=== PATIENT | male | born 1970 | race Caucasian/White ===

== ENCOUNTER → 2016-08-24 10:31 | Outpatient (CLI) | payer BC ==
[2016-08-24 12:05] LABS: BASOPHILS 0.3 % (0.0-2.0); EOSINOPHILS 0.7 % (0-7); HEMATOCRIT 50.7 % (42.0-54.0); HEMOGLOBIN 16.9 g/dL (13.5-17.5); IMMATURE GRANULOCYTES 0.6 % (0-5); LYMPHOCYTES 17.4 % (15-50); MCH 35.4 pg (26.0-34.0); MCHC 33.3 g/dL (31.0-37.0); MCV 106.1 fL (80.0-100.0); MEAN PLATELET VOLUME 10.5 fL (7.4-10.4); MONOCYTES 14.5 % (2-11); NEUTROPHILS 66.5 % (40-80); PLATELET COUNT 219 10x3/uL (130-400); RBC 4.78 10x6/uL (4.20-6.10); RDW 12.5 % (11.5-14.5); WBC 6.7 10x3/uL (4.8-10.8)
[2016-08-24 12:31] LABS: COLOR DK YELLOW (YELLOW)
[2016-08-24 12:32] LABS: ALBUMIN 4.4 g/dL (3.4-5.0); ALKALINE PHOSPHATASE 95 U/L (46-116); ALT (SGPT) 71 U/L (10-68); AMYLASE - SERUM 60 U/L (25-115); APPEARANCE CLEAR (CLEAR); BILIRUBIN NEGATIVE (NEGATIVE); CALC OSMOLALITY 271 mosm/kg (275-300); CALCIUM 9.4 mg/dL (8.5-10.1); CARBON DIOXIDE 30.8 mmol/L (21.0-32.0); CHLORIDE - SERUM 100 mmol/L (98-107); CREATININE - SERUM 1.1 mg/dL (0.6-1.3); GLUCOSE 86 mg/dL (74-106); GLUCOSE NEGATIVE (NEGATIVE); KETONE NEGATIVE (NEGATIVE); LEUKOCYTE ESTERASE NEGATIVE (NEGATIVE); LIPASE 469 U/L (73-393); NITRITE NEGATIVE (NEGATIVE); POTASSIUM - SERUM 5.7 mmol/L (3.5-5.1); PROTEIN NEGATIVE (NEGATIVE); PROTEIN - SERUM 7.7 g/dL (6.4-8.2); SODIUM 137 mmol/L (136-145); SPECIFIC GRAVITY 1.005 (1.005-1.020); UREA NITROGEN 9 mg/dL (7-18); UROBILINOGEN NORMAL (NORMAL); eGFR NON AFRICAN AMERICAN 76 mL/min (90-120)
== END | disposition home or self-care (01) ==
LOC: D.US 10:30
PROVIDERS: Surgery
DX: D75.1 Secondary polycythemia (principal); R63.4 Abnormal weight loss; R10.9 Unspecified abdominal pain; R11.2 Nausea with vomiting, unspecified

== ENCOUNTER 2016-09-01 05:30 | Day surgery (SDC) | payer BC ==
[2016-08-31 15:14] LABS: BASOPHILS 0.3 % (0.0-2.0); EOSINOPHILS 1.8 % (0-7); HEMATOCRIT 42.7 % (42.0-54.0); HEMOGLOBIN 14.6 g/dL (13.5-17.5); IMMATURE GRANULOCYTES 0.8 % (0-5); LYMPHOCYTES 26.7 % (15-50); MCH 35.6 pg (26.0-34.0); MCHC 34.2 g/dL (31.0-37.0); MCV 104.1 fL (80.0-100.0); MEAN PLATELET VOLUME 10.2 fL (7.4-10.4); MONOCYTES 13.5 % (2-11); NEUTROPHILS 56.9 % (40-80); PLATELET COUNT 219 10x3/uL (130-400); RDW 12.2 % (11.5-14.5); WBC 6.2 10x3/uL (4.8-10.8)
[2016-08-31 15:25] LABS: CALC OSMOLALITY 275 mosm/kg (275-300); CALCIUM 8.9 mg/dL (8.5-10.1); CARBON DIOXIDE 25.3 mmol/L (21.0-32.0); CHLORIDE - SERUM 104 mmol/L (98-107); CREATININE - SERUM 0.8 mg/dL (0.6-1.3); GLUCOSE 81 mg/dL (74-106); INR 0.94 (0.85-1.17); POTASSIUM - SERUM 4.6 mmol/L (3.5-5.1); PROTIME 12.4 SECONDS (11.6-15.0); SODIUM 140 mmol/L (136-145); UREA NITROGEN 7 mg/dL (7-18); eGFR NON AFRICAN AMERICAN > 90 mL/min (90-120)
[~2016-09-01] VITALS: Ht 188 cm; Wt 87.1 kg
[~2016-09-01 05:30] MED LIST: ACCUPRIL40 MG PO; COUMADIN5 MG PO; DEXILANT60 MG PO; LIPITOR40 MG PO; METOPROLOL TART25 MG PO; PERCOCET 10/3251 TA1 PO; PLAVIX75 MG PO; PROTONIX40 MG PO; ZANAFLEX4 MG PO
[2016-09-01] MEDS ORDERED: ZOLOFT100 MG PO (06:33)
[2016-09-01] MEDS ORDERED: CATAPRES0.1 MG PO (06:34)
[2016-09-01 06:36] VITALS: BP 127/77; Ht 188 cm; Wt 87.1 kg
[2016-09-01] MEDS ORDERED: DILAUDID2 MG PO (10:37)
--- NOTE | 2016-09-03 07:35 | OP ---
PATIENT NAME: FAISAL KILLIAN MEDICAL RECORD: [id number] :68 [facility] DATE: SURGEON: SWAPNA EMERY MD DATE OF OPERATION: 09/01/2016 PREOPERATIVE DIAGNOSES: Biliary dyskinesia, manifested by right upper quadrant pain and minimal elevation in transaminase liver functions and minimal hyperlipasemia and sludge in gallbladder on ultrasound, but with normal ejection fraction during PIPIDA scanning with Ensure stimulation. ADDITIONAL DIAGNOSIS: Gastric polyposis. OPERATION PERFORMED: Laparoscopic cholecystectomy with intraoperative cholangiogram and EGD with multiple biopsies of gastric mucosa and duodenal mucosa, including a CLOtest. SURGEON: Swapna Emery MD. ANESTHESIA: General endotracheal per CNC WOOD LATHE OPERATOR. The patient was self referred. The patient's local Press Operator Carbon Blocks Oncologist is Dr. Nesbitt at the [facility] here in [place] and his primary care physician is Dr. Powell in [place], [place]. OPERATIVE FINDINGS: Normal appearing gallbladder and liver with a normal cholangiogram and multiple gastric small sessile polyps. No evidence of esophagitis or hiatus hernia with a normal appearing lower esophageal sphincter complex and no significant gastritis, duodenitis. No ulcers, etc. ANESTHESIA: General endotracheal per CNC WOOD LATHE OPERATOR. PREOPERATIVE NOTE: Mr. Killian is a 46-year-old white male patient from [place] previously at [place], [place] in [place], [place]. He has a long history of abdominal pain and has suffered about a 25-pound weight loss over the past few months. His pain is often at the right upper quadrant postprandial. His evaluation included a liver function profile, which demonstrated mild elevations in SGOT and SGGT with a normal alkaline phosphatase. He did have a mild elevation in serum lipase also. He had a PIPIDA scan, which demonstrated normal gallbladder ejection fraction, but reproduction of pain with ingestion of Ensure. The patient's gallbladder ultrasound demonstrated some sludge in the gallbladder, but otherwise normal and an abdominal CT scan was done with IV contrast demonstrated no abnormality of the pancreas, liver, or other intraabdominal organs. The patient was advised that the reproduction of pain during the PIPIDA scan is soft indication or confirmation of biliary dyskinesia that nothing else having turned up. He today is going to have a laparoscopic cholecystectomy and also an EGD. He has a history of use of a proton pump inhibitor. MEDICATIONS: Presently is on Dexilant and Protonix and a b.i.d. dosage of regime with unclear indications. The patient does have a history of severe hypertension. I believe he has had a TIA as well and has fairly severe polycythemia vera. He is on Coumadin and Plavix medications because of that. He has discontinued his Coumadin and Plavix for approximately 5 days prior to his operation. OPERATIVE REPORT [id number] FAISAL KILLIAN DESCRIPTION OF PROCEDURE: With the patient under general endotracheal anesthesia in supine position, he was prepped and draped in a sterile manner. The abdomen was entered through a short midline subumbilical incision. A Dov port was placed and pneumoperitoneum established with carbon dioxide. A four additional ports were placed in the usual positions using 5-mm ports, but one 10-11 at the subxiphoid spot. The abdomen was examined and the operation was conducted with a 10 mm diameter 30 degree angled laparoscope. A general assessment upon entering the abdomen with the scope was at all of the visible structures were normal in appearance. The gallbladder was retracted cephalad and again noted the gallbladder and liver and hepatoduodenal ligament and duodenum were normal in appearance. There was no evidence of inflammatory process in this area. Blunt dissection exposed the junction of the common bile duct and the neck of the gallbladder and a very prominent right hepatic artery with a short cystic artery arising from that. The cystic duct was closed near the neck of the gallbladder and then incised and a cholangiocatheter inserted through the anterior abdominal wall, was flushed with saline and then inserted into the cystic duct and held in place with a clip. Real time digital C-arm fluoroscopy was used along with digital subtraction technique to perform the intraoperative cholangiogram. This study was normal with normal filling of the common bile duct and common hepatic duct and intrahepatic right and left hepatic ducts and there was free flow of contrast into the duodenum without evidence of filling defects or obstruction. The cholangiogram catheter was removed and the cystic duct multiply hemoclipped and then divided. The cystic artery was carefully dissected and multiply hemoclipped and divided protecting the hepatic artery. The gallbladder was then detached from the liver with monopolar electrocautery dissection and placed in a sterile plastic retrieval bag. The gallbladder was perforated by one of the graspers, but there is minimal bile spillage and this was all irrigated and suctioned away. After reducing the intraperitoneal pressure and observing for any bleeding, the gallbladder was removed from the peritoneal cavity through the subumbilical incision and pneumoperitoneum was evacuated. The remaining ports were removed and the wounds were closed with interrupted [id number] 0 Vicryl for fascia and interrupted inverted 3-0 Vicryl for skin and subcutaneous tissues. The incisions were further sealed and closed with glue and dressed with Maxorb Ag, Tegaderm and Cavilon skin prep. Prior to closure, I also instilled 30 mL of 0.25% Marcaine with epinephrine into the subphrenic and subhepatic spaces. The patient was continued under anesthesia and the Olympus gastroscope was inserted through the mouth and advanced to the pharynx and esophagus into the stomach. There was no evidence of abnormality of the esophagus. No evidence of esophagitis, certainly no ulceration or stricture, no inflammation, no candidiasis, etc. The GE junction was located at about 42 to 43 cm from the incisors and the lower esophageal sphincter seems to be intact without any abnormal laxity whatsoever. The prominent rugal folds and multiple nodules consistent with a gastric fundic polyps. There was no evident gastritis. No ulcerations or other abnormalities. The scope was passed through the patulous pylorus into the first and then the second portions of the duodenum and slowly withdrawn. Biopsies of the duodenal mucosa were obtained in the first portion of the duodenum and then in the stomach, multiple gastric mucosal biopsies were obtained for CLOtest as well as histopathology. The insufflated air was suctioned away and the scope withdrawn. The patient was then awakened and in stable condition taken to the recovery room. Blood loss throughout the procedure was trivial and was unreplaced and all sponges, instruments, and needles were accounted for. No drain was used and the surgical specimens consisted of the gallbladder and its remaining contents and the duodenal mucosal OPERATIVE REPORT [id number] FAISAL KILLIAN and gastric mucosal endoscopic biopsies. PLAN: For the patient to go home today and continue his home medications. We will resume his usual daily dose of Coumadin today, but is not to resume his Plavix until after he sees me in my office. He has an appointment to return to see me in about 2 weeks. He is to call or comes to see me sooner if there is any problem. He plans to be I think out of town in [place] in the interim, otherwise I will be seeing him back sooner. He is given a prescription for Dilaudid 2 mg #10 and can take 1 p.o. q.4 hours p.r.n. pain, but I advised that if possible he takes only Tylenol. He will continue to avoid aspirin and nonsteroidal anti-inflammatory medications and alcohol. Blood loss during the operation was insignificant and unreplaced. No drain was used. All sponges, instruments and needles were accounted for and the specimens were noted. At this point, I see no clear indication for the intensive PPI therapy and when I see him back in the office, we will discuss trying to wean him from these medications, perhaps towards H2 receptor blockers and oral antacids if still needed. Hopefully, his biliary dyskinesia has been responsible for a great deal of his discomfort and that will have been relieved by today's procedure. TRANSINT:[id number] Voice Confirmation ID: [id number] DOCUMENT ID: [id number] SWAPNA EMERY MD at 0735 CC: PRIMO NESBITT MD [id number] DICTATION DATE: 09/01/16 1107 FREELANCE ART DIRECTOR: 09/01/16 [address] [facility] 09/01/16 [facility] [address] [place] [address]
== END 2016-09-01 11:30 | disposition home or self-care (01) ==
LOC: D.OPS 05:30 → D.PAN 07:30 → D.OPS 11:30
PROVIDERS: Surgery
DX: R10.11 Right upper quadrant pain (principal); K21.9 Gastro-esophageal reflux disease without esophagitis; I10 Essential (primary) hypertension; Z87.891 Personal history of nicotine dependence; M19.90 Unspecified osteoarthritis, unspecified site; K82.8 Other specified diseases of gallbladder

== ENCOUNTER 2017-07-26 20:41 | Emergency (ER) | payer BC ==
[~2017-07-26 20:41] MED LIST changes: +CATAPRES0.1 MG PO; +DILAUDID2 MG PO; +ZOLOFT100 MG PO
== END 2017-07-26 21:50 | disposition home or self-care (01) ==
LOC: D.ER 20:41
DX: S80.12XA Contusion of left lower leg, initial encounter (principal); W20.8XXA Other cause of strike by thrown, projected or falling object, initial encounter; Y93.89 Activity, other specified; Y92.89 Other specified places as the place of occurrence of the external cause; S80.812A Abrasion, left lower leg, initial encounter; I10 Essential (primary) hypertension; M25.562 Pain in left knee

== ENCOUNTER → 2017-10-17 14:56 | Outpatient (CLI) | payer BC ==
[2016-09-01 06:36] VITALS: BMI 24.7
== END | disposition home or self-care (01) ==
LOC: D.MRI 14:00
DX: M79.671 Pain in right foot (principal)

== ENCOUNTER 2017-11-12 11:35 | Day surgery (SDC) | payer BC ==
[~2017-11-12] VITALS: Ht 188 cm; Wt 86.2 kg
--- NOTE | ~2017-11-12 | OP ---
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 Peroneal nerve palsy of the right lower extremity with footdrop. 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 PROCEDURE: Peroneal nerve release, right lower extremity. SURGEON: Swapna Branham MD ANESTHESIA: General. INTRAOPERATIVE COMPLICATIONS: None. SUMMARY OF PATHOLOGIC FINDINGS: The patient had very tight fibrous bands just anterior to the fibular head where the peroneal nerve penetrated into the foot dorsiflexion mechanism. OPERATIVE SUMMARY IN DETAIL: After obtaining the appropriate preoperative orthopaedic surgery consent as well as anesthetic consultation, evaluation, and clearance, the patient was brought to the operating room and placed on the operating table in the supine position. After adequate general laryngeal mask airway was administered, the patient was placed in left lateral decubitus position. All pressure points were well padded to include down leg peroneal pad as well as axillary roll. The patient was held firmly to the operating table using the vacuum pack suction system. Right lower extremity was prepared with tourniquet about the proximal aspect. Right lower extremity was prepped and draped in routine sterile fashion. Leg was elevated and exsanguinated. Tourniquet was inflated to 350 mmHg. A curvilinear incision was made across the area where the peroneal nerve transits the fibular head. Incision was taken down to the subcutaneous tissue and then spread with Metzenbaum scissors utilized. Perineural fat was noticed at the very top; however, it was very slight at the area of what I think was the patient's entrapment. Peroneal nerve was then released of all of its entrapping tissues approximately 8 cm proximally and distally to its fibular crossing under direct visualization. The nerve was still intact. It did have an area of decreased diameter at the above-mentioned spot. After complete release, the wound was irrigated and closed with 2-0 Vicryl followed by 4-0 Prolene in interrupted fashion. Sterile dressings were applied. Tourniquet was deflated. The patient was awakened and taken to the recovery room in stable condition. All final needle and sponge counts were correct. TRANSINT:[id number] Voice Confirmation ID: [id number] DOCUMENT ID: [id number] OPERATIVE REPORT [id number] FAISAL ROLON MD, SWAPNA CAST at 1035 CC: [id number] DICTATION DATE: 11/12/17 1640 MEDICAL CONCIERGE: 11/12/17 1743 [facility] 11/12/[address] [address]
[2017-11-12 12:26] LABS: HEMATOCRIT 42.7 % (42.0-54.0); HEMOGLOBIN 15.3 g/dL (13.5-17.5); MCH 36.9 pg (26.0-34.0); MCHC 35.8 g/dL (31.0-37.0); MCV 102.9 fL (80.0-100.0); MEAN PLATELET VOLUME 10.3 fL (7.4-10.4); RBC 4.15 10x6/uL (4.20-6.10); RDW 13.5 % (11.5-14.5); WBC 7.2 10x3/uL (4.8-10.8)
[2017-11-12 12:48] LABS: APTT 33.5 SECONDS (22.8-39.4); INR 2.02 (0.85-1.17); PROTIME 22.2 SECONDS (11.6-15.0)
[2017-11-12] MEDS ORDERED: GABAPENTIN100 MG (13:03)
[2017-11-12] MEDS ORDERED: LYRICA75 MG PO (13:04)
[2017-11-12 13:13] VITALS: BP 154/96; Ht 188 cm; Wt 86.2 kg
[2017-11-12] MEDS ORDERED: HYDROCODONE-APA1 TAB PO (16:33)
== END 2017-11-12 19:10 | disposition home or self-care (01) ==
LOC: D.OPS 11:35 → D.PAN 13:45 → D.OPS 13:45
PROVIDERS: Anesthesiology
DX: G57.31 Lesion of lateral popliteal nerve, right lower limb (principal); M21.371 Foot drop, right foot; Z01.812 Encounter for preprocedural laboratory examination

== ENCOUNTER 2018-03-12 08:05 | Inpatient (IN) | payer BC ==
[2018-03-12] VITALS (17 sets, daily range): BP systolic 140–176; BP diastolic 87–114
[~2018-03-12] VITALS: Ht 188 cm; Wt 90.9 kg
--- NOTE | ~2018-03-12 | MORECARE ---
CASE MANAGEMENT DISCHARGE SUMMARY PATIENT: FAISAL ROLON UNIT: [id number] ADM DATE: 03/12/18 AGE: 47 : 68 SEX: M ROOM/BED: D.2130 AUTHOR: DENNISDOC PHYSICIAN: REFERRING PHYSICIAN: JES SERNA MD DATE OF SERVICE: 03/15/18 Discharge Plan Patient Name: FAISAL ROLON Facility: [facility]:[place] : 1970 Planned Disposition: Home Anticipated Discharge Date: Discharge Date: Expected LOS: Initial Reviewer: [email or web address] Initial Review Date: 03/15/2018 Generated: 03/15/18 4:24 pm Comments DCP- Discharge Planning Updated by [email or web address]: Andres Gregory on 03/15/18 2:[address] Patient Name: FAISAL ROLON Admission Status: ER Accout number: [id number] Admission Date: 03-12-2018 : 1970 Admission Diagnosis:GASTROINTESTINAL HEMORRHAGE, UNSPECIFIED Attending: JES SERNA Current LOS: 3 Anticipated DC Date: Planned Disposition: Home Primary Insurance: [employer] OUT OF STATE Discharge Planning Comments: CM MET WITH PT IN ROOM TO DISCUSS DISCHARGE PLANNING AND NEEDS. PT REPORTS LIVING AT HOME INDEPENDENTLY WITH SPOUSE. PT HAS NO MEDICAL EQUIPMENT AND NO OUTSIDE SERVICES ASSISTING IN THE HOME. CM DISCUSSED AVAILABILITY OF HOME HEALTH, REHAB SERVICES AND MEDICAL EQUIPMENT. PT DENIES DISCHARGE NEEDS AND WOULD LIKE AN "INR TESTING MACHINE" TO USE AT HOME IF AT ALL POSSIBLE. PT REPORTS TALKING TO DR. GARSIA ABOUT THIS YESTERDAY. CM EXPLAINED THAT CM CAN ASSIST WITH PHYSICIAN ORDER. PT REPORTS HIS WILL PICK HIM UP FOR DISCHARGE HOME. PT DOES NOT HAVE PRIMARY CARE DOCTOR IN [place] AND WILL CONTACT HIS INSURANCE COMPANY TO OBTAIN LIST OF IN NETWORK PROVIDERS TO CHECK WITH FOR AVAILABILITY. PT PLANS TO DISCHARGE HOME WITH SPOUSE, PT WOULD LIKE "INR TESTING MACHINE" FOR HOME USE. CM TO ASSIST WITH OBTAINING MACHINE WITH PHYSICIAN AGREEMENT AND ORDER. Cotton Baler: Andres Gregory DCPIA - Discharge Planning Initial Assessment Updated by [email or web address]: Andres Gregory on 03/15/18 3:07 pm * Is the patient Alert and Oriented? Yes * How many steps to enter\\exit or inside your home? * PCP DR. [place], [place] * Pharmacy NONE * Preadmission Environment Home with Family * ADLs Independent * Equipment None * Other Equipment NONE * List name and contact numbers for known caregivers / representatives who currently or will assist patient after discharge: SANDY ROLON, * Verbal permission to speak to the caregivers and representatives has been obtained from the patient. N/A * Community resources currently utilized None * Please name any agencies selected above. NONE * Additional services required to return to the preadmission environment? No * Can the patient safely return to the preadmission environment? Yes * Has this patient been hospitalized within the prior 30 days at any hospital? No Last DP export: 03/15/18 2:08 Patient Name: FAISAL ROLON Page [id number] at 1524 All edits/amendments must be made on the electronic document DICTATION DATE: 03/15/181523 CUSTOM FRAME ASSEMBLER: LUDY 03/15/181523 RPT#: [id number] DC DATE: STATUS: ADM IN [facility] [address] [place] [address] END OF REPORT
--- NOTE | ~2018-03-12 | MORECARE ---
CASE MANAGEMENT DISCHARGE SUMMARY PATIENT: FAISAL ROLON UNIT: [id number] ADM DATE: 03/12/18 AGE: 47 : 68 SEX: M ROOM/BED: D.2130 AUTHOR: MATILDA COLLINS PHYSICIAN: REFERRING PHYSICIAN: JES SERNA MD DATE OF SERVICE: 03/15/18 Discharge Plan Patient Name: FAISAL ROLON [facility] [facility] 1970 Planned Disposition: Home Anticipated Discharge Date: Discharge Date: Expected LOS: Initial Reviewer: [email or web address] Initial Review Date: 03/15/2018 Generated: 03/15/18 4:08 pm DCPIA - Discharge Planning Initial Assessment Updated by [email or web address]: Andres Gregory on 03/15/18 3:07 pm * Is the patient Alert and Oriented? Yes * How many steps to enter\exit or inside your home? * PCP DR. OWEN, [place], [place] * Pharmacy NONE * Preadmission Environment Home with Family * ADLs Independent * Equipment None * Other Equipment NONE * List name and contact numbers for known caregivers / representatives who currently or will assist patient after discharge: SANDY ROLON, * Verbal permission to speak to the caregivers and representatives has been obtained from the patient. N/A * Community resources currently utilized None * Please name any agencies selected above. NONE * Additional services required to return to the preadmission environment? No * Can the patient safely return to the preadmission environment? Yes * Has this patient been hospitalized within the prior 30 days at any hospital? No Patient Name: FAISAL ROLON Page [phone] at 1508 All edits/amendments must be made on the electronic document DICTATION DATE: 03/15/18 1507 GAS APPLIANCE MECHANIC: LUDY 03/15/18 1507 RPT#: [id number] DC DATE: STATUS: ADM IN [facility] [address] [place] [address] END OF REPORT
--- NOTE | ~2018-03-12 | MORECARE ---
CASE MANAGEMENT DISCHARGE SUMMARY PATIENT: FAISAL ROLON UNIT: [id number] ADM DATE: 03/12/18 AGE: 47 : 68 SEX: M ROOM/BED: D.2130 AUTHOR: DENNISDOC PHYSICIAN: REFERRING PHYSICIAN: JES SERNA MD DATE OF SERVICE: 03/18/18 Discharge Plan Patient Name: FAISAL ROLON Facility: [facility]:[place] : 1970 Planned Disposition: Home Anticipated Discharge Date: 03/16/18 Discharge Date: 03/16/2018 Expected LOS: 4 Initial Reviewer: [email or web address] Initial Review Date: 03/15/2018 Generated: 03/18/18 10:02 am Comments DCP- Discharge Planning Updated by [email or web address]: Andres Gregory on 03/15/18 2:[address] Patient Name: FAISAL ROLON Admission Status: ER Accout number: [id number] Admission Date: 03-12-2018 : 1970 Admission Diagnosis:GASTROINTESTINAL HEMORRHAGE, UNSPECIFIED Attending: JES SERNA Current LOS: 3 Anticipated DC Date: Planned Disposition: Home Primary Insurance: [employer] OUT OF STATE Discharge Planning Comments: CM MET WITH PT IN ROOM TO DISCUSS DISCHARGE PLANNING AND NEEDS. PT REPORTS LIVING AT HOME INDEPENDENTLY WITH SPOUSE. PT HAS NO MEDICAL EQUIPMENT AND NO OUTSIDE SERVICES ASSISTING IN THE HOME. CM DISCUSSED AVAILABILITY OF HOME HEALTH, REHAB SERVICES AND MEDICAL EQUIPMENT. PT DENIES DISCHARGE NEEDS AND WOULD LIKE AN "INR TESTING MACHINE" TO USE AT HOME IF AT ALL POSSIBLE. PT REPORTS TALKING TO DR. GARSIA ABOUT THIS YESTERDAY. CM EXPLAINED THAT CM CAN ASSIST WITH PHYSICIAN ORDER. PT REPORTS HIS WILL PICK HIM UP FOR DISCHARGE HOME. PT DOES NOT HAVE PRIMARY CARE DOCTOR IN [place] AND WILL CONTACT HIS INSURANCE COMPANY TO OBTAIN LIST OF IN NETWORK PROVIDERS TO CHECK WITH FOR AVAILABILITY. PT PLANS TO DISCHARGE HOME WITH SPOUSE, PT WOULD LIKE "INR TESTING MACHINE" FOR HOME USE. CM TO ASSIST WITH OBTAINING MACHINE WITH PHYSICIAN AGREEMENT AND ORDER. Gum Mixer: Andres Gregory DCPIA - Discharge Planning Initial Assessment Updated by [email or web address]: Andres Gregory on 03/15/18 3:07 pm * Is the patient Alert and Oriented? Yes * How many steps to enter\\exit or inside your home? * PCP DR. OWEN, [place], [place] * Pharmacy NONE * Preadmission Environment Home with Family * ADLs Independent * Equipment None * Other Equipment NONE * List name and contact numbers for known caregivers / representatives who currently or will assist patient after discharge: SANDY ROLON, * Verbal permission to speak to the caregivers and representatives has been obtained from the patient. N/A * Community resources currently utilized None * Please name any agencies selected above. NONE * Additional services required to return to the preadmission environment? No * Can the patient safely return to the preadmission environment? Yes * Has this patient been hospitalized within the prior 30 days at any hospital? No Last DP export: 03/15/18 2:24 Patient Name: FAISAL ROLON Page [phone] at 0902 All edits/amendments must be made on the electronic document DICTATION DATE: 03/18/18901 ENCAPSULATOR: LUDY 03/18/18901 RPT#: [id number] DC DATE:03/16/18 STATUS: DIS IN [facility] [address] [place] [address] END OF REPORT
[~2018-03-12 08:05] MED LIST changes: +GABAPENTIN100 MG; +HYDROCODONE-APA1 TAB PO; +LYRICA75 MG PO
[2018-03-12 08:39] LABS: BASOPHILS 0.3 % (0-2); EOSINOPHILS 1.8 % (0-7); HEMATOCRIT 30.5 % (42.0-54.0); HEMOGLOBIN 10.6 g/dL (13.5-17.5); LYMPHOCYTES 11.3 % (15-50); MCH 35.5 pg (26.0-34.0); MCHC 34.8 g/dL (31.0-37.0); MEAN PLATELET VOLUME 9.1 fL (7.4-10.4); MONOCYTES 10.4 % (2-11); NEUTROPHILS 75.2 % (40-80); PLATELET COUNT 220 10x3/uL (130-400); RBC 2.99 10x6/uL (4.20-6.10); RDW 15.1 % (11.5-14.5); WBC 11.6 10x3/uL (4.8-10.8)
[2018-03-12 08:58] LABS: APPEARANCE CLOUDY (CLEAR); BILIRUBIN NEGATIVE (NEGATIVE); COLOR DK YELLOW (YELLOW); EPITHELIAL CELLS OCC /hpf (0-5); GLUCOSE NEGATIVE (NEGATIVE); KETONE MODERATE mg/dL (NEGATIVE); MUCUS >1+ /lpf (NONE SEEN); NITRITE NEGATIVE (NEGATIVE); PROTEIN NEGATIVE (NEGATIVE); RED CELLS - URINE >50 /hpf (0-5); SPECIFIC GRAVITY 1.015 (1.005-1.020); UROBILINOGEN NORMAL (NORMAL); WHITE CELLS - URINE 0-5 /hpf (0-5)
[2018-03-12 09:12] LABS: APTT 149.7 SECONDS (22.8-39.4)
[2018-03-12 09:13] LABS: ALKALINE PHOSPHATASE 125 U/L (46-116); ALT (SGPT) 33 U/L (10-68); BILIRUBIN - TOTAL 1.36 mg/dL (0.2-1.3); CALC OSMOLALITY 277 mosm/kg (275-300); CARBON DIOXIDE 22.8 mmol/L (21.0-32.0); CHLORIDE - SERUM 103 mmol/L (98-107); CREATININE - SERUM 0.8 mg/dL (0.6-1.3); GLUCOSE 110 mg/dL (74-106); POTASSIUM - SERUM 3.5 mmol/L (3.5-5.1); PROTEIN - SERUM 7.5 g/dL (6.4-8.2); SODIUM 139 mmol/L (136-145); UREA NITROGEN 11 mg/dL (7-18); eGFR NON AFRICAN AMERICAN > 90 mL/min (90-120)
[2018-03-12 09:15] LABS: INR 9.38 (0.85-1.17); PROTIME 74.6 SECONDS (11.6-15.0)
[2018-03-12 15:04] LABS: HEMATOCRIT 25.8 % (42.0-54.0); HEMOGLOBIN 8.9 g/dL (13.5-17.5)
[2018-03-12 15:16] LABS: INR 1.72 (0.85-1.17); PROTIME 19.6 SECONDS (11.6-15.0)
[2018-03-12 17:10] LABS: HEMATOCRIT 26.1 % (42.0-54.0)
[2018-03-12 17:48] LABS: CKMB 1.4 U/L (0.0-3.6); CREATINE KINASE 368 UL (21-232); TROPONIN-I < 0.017 ng/mL (0.000-0.060)
[2018-03-12 22:28] LABS: HEMATOCRIT 25.9 % (42.0-54.0); HEMOGLOBIN 8.8 g/dL (13.5-17.5)
[2018-03-12 23:00] LABS: CKMB 1.1 U/L (0.0-3.6); CREATINE KINASE 327 UL (21-232)
[2018-03-12 23:04] LABS: TROPONIN-I < 0.017 ng/mL (0.000-0.060)
[2018-03-13] VITALS (23 sets, daily range): BP systolic 143–169; BP diastolic 86–101; Ht 188 cm; Wt 90.9 kg
[2018-03-13 04:42] LABS: BASOPHILS 0.2 % (0-2); EOSINOPHILS 1.7 % (0-7); HEMATOCRIT 25.8 % (42.0-54.0); HEMOGLOBIN 8.8 g/dL (13.5-17.5); IMMATURE GRANULOCYTES 1.6 % (0-5); LYMPHOCYTES 10.5 % (15-50); MCH 35.6 pg (26.0-34.0); MCHC 34.1 g/dL (31.0-37.0); MONOCYTES 10.7 % (2-11); NEUTROPHILS 75.3 % (40-80); PLATELET COUNT 180 10x3/uL (130-400); RBC 2.47 10x6/uL (4.20-6.10); RDW 15.6 % (11.5-14.5)
[2018-03-13 04:44] LABS: MCV 104.5 fL (80.0-100.0); WBC 8.1 10x3/uL (4.8-10.8)
[2018-03-13 04:48] LABS: INR 1.06 (0.85-1.17); PROTIME 13.4 SECONDS (11.6-15.0)
[2018-03-13 05:16] LABS: ALBUMIN 3.4 g/dL (3.4-5.0); ALKALINE PHOSPHATASE 158 U/L (46-116); BILIRUBIN - TOTAL 3.98 mg/dL (0.2-1.3); CALCIUM 8.3 mg/dL (8.5-10.1); CARBON DIOXIDE 25.8 mmol/L (21.0-32.0); CHLORIDE - SERUM 103 mmol/L (98-107); CREATINE KINASE 280 UL (21-232); CREATININE - SERUM 0.7 mg/dL (0.6-1.3); GLUCOSE 93 mg/dL (74-106); POTASSIUM - SERUM 3.4 mmol/L (3.5-5.1); PROTEIN - SERUM 6.4 g/dL (6.4-8.2); SODIUM 140 mmol/L (136-145); TROPONIN-I < 0.017 ng/mL (0.000-0.060); eGFR NON AFRICAN AMERICAN > 90 mL/min (90-120)
[2018-03-13 05:21] LABS: ALT (SGPT) 46 U/L (10-68); CALC OSMOLALITY 276 mosm/kg (275-300); UREA NITROGEN 6 mg/dL (7-18)
[2018-03-13 11:06] LABS: HEMATOCRIT 27.7 % (42.0-54.0); HEMOGLOBIN 9.5 g/dL (13.5-17.5)
[2018-03-13 16:18] LABS: HEMATOCRIT 27.2 % (42.0-54.0); HEMOGLOBIN 9.2 g/dL (13.5-17.5)
[2018-03-13 22:50] LABS: HEMATOCRIT 26.8 % (42.0-54.0); HEMOGLOBIN 9.1 g/dL (13.5-17.5)
[2018-03-14] VITALS (13 sets, daily range): BP systolic 127–153; BP diastolic 76–95
[2018-03-14 04:54] LABS: HEMATOCRIT 27.8 % (42.0-54.0); HEMOGLOBIN 9.4 g/dL (13.5-17.5)
[2018-03-14 09:27] LABS: INR 0.96 (0.85-1.17); PROTIME 12.4 SECONDS (11.6-15.0)
[2018-03-14 11:21] LABS: HEPATITIS C ANTIBODY <0.1 (0.0-0.9)
[2018-03-15 00:56] VITALS: BP 129/81
[2018-03-15 06:21] VITALS: BP 137/83
[2018-03-15 06:34] LABS: INR 0.95 (0.85-1.17); PROTIME 12.3 SECONDS (11.6-15.0)
[2018-03-15 06:38] LABS: BASOPHILS 0.1 % (0-2); EOSINOPHILS 1.1 % (0-7); HEMATOCRIT 28.6 % (42.0-54.0); HEMOGLOBIN 9.5 g/dL (13.5-17.5); IMMATURE GRANULOCYTES 1.5 % (0-5); LYMPHOCYTES 13.1 % (15-50); MCH 34.5 pg (26.0-34.0); MCHC 33.2 g/dL (31.0-37.0); MONOCYTES 15.9 % (2-11); NEUTROPHILS 68.3 % (40-80); PLATELET COUNT 195 10x3/uL (130-400); RBC 2.75 10x6/uL (4.20-6.10); RDW 18.1 % (11.5-14.5); WBC 7.1 10x3/uL (4.8-10.8)
[2018-03-15 06:56] LABS: CALC OSMOLALITY 280 mosm/kg (275-300); CALCIUM 8.7 mg/dL (8.5-10.1); CARBON DIOXIDE 26.4 mmol/L (21.0-32.0); CHLORIDE - SERUM 106 mmol/L (98-107); CREATININE - SERUM 0.7 mg/dL (0.6-1.3); GLUCOSE 99 mg/dL (74-106); POTASSIUM - SERUM 3.9 mmol/L (3.5-5.1); SODIUM 142 mmol/L (136-145); UREA NITROGEN 7 mg/dL (7-18); eGFR NON AFRICAN AMERICAN > 90 mL/min (90-120)
[2018-03-15 08:03] VITALS: BP 131/78
[2018-03-15 09:18] LABS: FOLATE (FOLIC ACID) - SERUM 5.2 ng/mL (>3.0)
[2018-03-15 11:52] VITALS: BP 132/90
[2018-03-15 15:58] VITALS: BP 168/98
[2018-03-15 20:00] VITALS: BP 148/91
[2018-03-16 05:36] LABS: BASOPHILS 0.2 % (0-2); EOSINOPHILS 2.2 % (0-7); HEMATOCRIT 29.1 % (42.0-54.0); HEMOGLOBIN 9.8 g/dL (13.5-17.5); IMMATURE GRANULOCYTES 1.6 % (0-5); LYMPHOCYTES 13.8 % (15-50); MCH 34.9 pg (26.0-34.0); MCHC 33.7 g/dL (31.0-37.0); MCV 103.6 fL (80.0-100.0); MONOCYTES 17.6 % (2-11); NEUTROPHILS 64.6 % (40-80); PLATELET COUNT 212 10x3/uL (130-400); RBC 2.81 10x6/uL (4.20-6.10); RDW 17.6 % (11.5-14.5); WBC 6.3 10x3/uL (4.8-10.8)
[2018-03-16 05:47] LABS: INR 1.01 (0.85-1.17); PROTIME 12.9 SECONDS (11.6-15.0)
[2018-03-16 05:56] LABS: CALC OSMOLALITY 282 mosm/kg (275-300); CALCIUM 8.7 mg/dL (8.5-10.1); CARBON DIOXIDE 26.8 mmol/L (21.0-32.0); CHLORIDE - SERUM 108 mmol/L (98-107); CREATININE - SERUM 0.7 mg/dL (0.6-1.3); GLUCOSE 101 mg/dL (74-106); POTASSIUM - SERUM 3.6 mmol/L (3.5-5.1); SODIUM 143 mmol/L (136-145); UREA NITROGEN 7 mg/dL (7-18); eGFR NON AFRICAN AMERICAN > 90 mL/min (90-120)
[2018-03-16 06:04] VITALS: BP 126/70
[2018-03-16 08:00] VITALS: BP 133/91
[2018-03-16 11:26] VITALS: BP 127/85
[2018-03-16] MEDS ORDERED: ACETAMINOPHEN500 M1 PO (11:44)
[2018-03-16] MEDS ORDERED: NORCO 10-325 TA1 TAB PO (16:35)
== END 2018-03-16 17:27 | disposition home or self-care (01) | DRG 378 ==
LOC: D.ER 08:05 → D.ICU 10:18 → D.M2 10:18 → D.ICU 11:03 → D.M2 03-14 11:59
PROVIDERS: Emergency Medicine; Family Medicine; Internal Medicine Gastroenterology
PROC: 0DJ08ZZ Inspection of Upper Intestinal Tract, Via Natural or Artificial Opening Endoscopic (ICD-10-PCS; principal; 2018-03-13 13:00)
DX: K26.4 Chronic or unspecified duodenal ulcer with hemorrhage (principal); D62 Acute posthemorrhagic anemia; F10.20 Alcohol dependence, uncomplicated; T45.515A Adverse effect of anticoagulants, initial encounter; K20.9 Esophagitis, unspecified; K29.70 Gastritis, unspecified, without bleeding; E78.5 Hyperlipidemia, unspecified; F41.9 Anxiety disorder, unspecified; I10 Essential (primary) hypertension; D45 Polycythemia vera; Z87.891 Personal history of nicotine dependence; Z86.73 Personal history of transient ischemic attack (TIA), and cerebral infarction without residual deficits

== ENCOUNTER → 2018-04-23 16:32 | Outpatient (CLI) | payer BC ==
[2018-03-13 09:05] VITALS: BMI 27.3
[~2018-04-23 16:32] MED LIST changes: +ACETAMINOPHEN500 M1 PO; +NORCO 10-325 TA1 TAB PO
== END | disposition home or self-care (01) ==
LOC: D.MRI 16:30
DX: S83.232A Complex tear of medial meniscus, current injury, left knee, initial encounter (principal)

== ENCOUNTER → 2018-05-16 07:32 | Outpatient (CLI) | payer BC ==
[2018-03-13 09:05] VITALS: BMI 27.3
== END | disposition home or self-care (01) ==
LOC: D.MRI 07:30
DX: M25.561 Pain in right knee (principal)

== ENCOUNTER 2018-05-17 05:40 | Day surgery (SDC) | payer BC ==
[~2018-05-17] VITALS: Ht 188 cm; Wt 95.5 kg
[2018-05-17 06:12] LABS: BASOPHILS 0.1 % (0-2); EOSINOPHILS 1.5 % (0-7); HEMATOCRIT 44.3 % (42.0-54.0); HEMOGLOBIN 15.6 g/dL (13.5-17.5); IMMATURE GRANULOCYTES 0.6 % (0-5); LYMPHOCYTES 15.4 % (15-50); MCH 33.8 pg (26.0-34.0); MCHC 35.2 g/dL (31.0-37.0); MCV 95.9 fL (80.0-100.0); MEAN PLATELET VOLUME 9.8 fL (7.4-10.4); MONOCYTES 11.7 % (2-11); NEUTROPHILS 70.7 % (40-80); PLATELET COUNT 173 10x3/uL (130-400); RBC 4.62 10x6/uL (4.20-6.10); RDW 13.2 % (11.5-14.5)
[2018-05-17 06:17] LABS: CALC OSMOLALITY 280 mosm/kg (275-300); CALCIUM 9.2 mg/dL (8.5-10.1); CARBON DIOXIDE 23.4 mmol/L (21.0-32.0); CHLORIDE - SERUM 106 mmol/L (98-107); CREATININE - SERUM 0.9 mg/dL (0.6-1.3); GLUCOSE 110 mg/dL (74-106); POTASSIUM - SERUM 3.8 mmol/L (3.5-5.1); SODIUM 141 mmol/L (136-145); UREA NITROGEN 9 mg/dL (7-18); eGFR NON AFRICAN AMERICAN > 90 mL/min (90-120)
[2018-05-17 06:19] LABS: APTT 26.1 SECONDS (22.8-39.4); PROTIME 12.7 SECONDS (11.6-15.0)
[2018-05-17 07:17] VITALS: BP 134/80; Ht 188 cm; Wt 95.5 kg
--- NOTE | 2018-05-17 09:13 | NUR ---
PT TOLERATING FULL LIQUID DIET. IV D/C WITH CATHETER INTACT.
--- NOTE | 2018-05-30 09:29 | OP ---
PATIENT NAME: FAISAL KILLIAN MEDICAL RECORD: [id number] :68 LOCATION:YASMINE ADMISSION DATE: SURGEON: SWAPNA EMERY MD DATE OF OPERATION: 05/17/2018 PREOPERATIVE DIAGNOSES: Persistent severe dyspepsia and gastroesophageal reflux disease symptoms despite medical therapy. POSTOPERATIVE DIAGNOSES: Gastroesophageal reflux disease without visible esophagitis, though with irregular Z-line consistent with gastroesophageal reflux disease. No hiatus hernia present. OPERATION PERFORMED: EGD with biopsy. SURGEON: Swapna Emery MD ANESTHESIA: TIVA per AUDIO VISUAL SECRETARY. PREOPERATIVE NOTE: Mr. Killian is a 48-year-old white male, patient of Dr. Otto Cabrera and Dr. Ramsey Branham. He has had recent surgery for biliary dyskinesia and has had GI bleeding and a history of gastric ulcer treated medically here in this hospital. He has been on H2 receptor blockers and in the past on Protonix. He has most recently been on H2 receptor blockers only and has been extremely symptomatic with GERD and reflux symptoms. He has been now on Pepcid and Protonix b.i.d. for a week and symptoms are better, though persistent still. He is brought to the GI lab for an EGD. DESCRIPTION OF PROCEDURE: Under TIVA, the patient was placed in a lateral decubitus position and the pharynx sprayed with benzocaine. The Olympus gastroscope was then easily passed through the mouth and pharynx and through the upper esophageal sphincter and down the esophagus. The esophagus was normal except for the distal centimeter or two, where there was an irregular Z-line consistent with GERD and less likely though possible very short segment Oakes's. There was no cicatrix or stenosis. There was no visible esophagitis or ulceration. There was no hiatus hernia. The scope was passed into the stomach and the stomach insufflated. The gastric mucosa all appeared normal. Again, the scope was retroflexed and the GE junction was anatomically normal, without any significant hiatus hernia at all. The scope was then passed distally through the pylorus into the first and second portions of the duodenum, which were normal. The scope was pulled back into the distal esophagus and several biopsies of the distal esophageal mucosa were obtained for histology. Insufflated air was then suctioned away and the scope withdrawn. This patient has intractable persistent GERD symptoms despite maximal medical, mechanical, and dietary management. It will be my recommendation that he have esophageal pH studies and manometry, and I will refer him to a surgeon, who is actively performing antireflux surgery for consultation. TRANSINT:[id number] Voice Confirmation ID: [id number] DOCUMENT ID: [id number] OPERATIVE REPORT [id number] FAISAL KILLIAN JAMES MD at 0929 CC: OTTO CABRERA MD and SWAPNA BRANHAM [id number] DICTATION DATE: 05/17/18 0844 PROJECT MANAGEMENT DIRECTOR: 05/17/18 1020 [facility] 05/17/18 [address] [place] [address]
== END 2018-05-17 09:25 | disposition home or self-care (01) ==
LOC: D.OPS 05:40
PROVIDERS: Surgery
DX: K21.9 Gastro-esophageal reflux disease without esophagitis (principal); K92.1 Melena; Z87.11 Personal history of peptic ulcer disease; D75.1 Secondary polycythemia; Z01.812 Encounter for preprocedural laboratory examination

== ENCOUNTER 2018-05-23 08:50 | Day surgery (SDC) | payer BC ==
[~2018-05-23] VITALS: Ht 188 cm; Wt 90.7 kg
[2018-05-23 09:16] LABS: HEMATOCRIT 42.2 % (42.0-54.0); HEMOGLOBIN 14.7 g/dL (13.5-17.5); MCH 33.6 pg (26.0-34.0); MCHC 34.8 g/dL (31.0-37.0); MCV 96.3 fL (80.0-100.0); MEAN PLATELET VOLUME 10.1 fL (7.4-10.4); RBC 4.38 10x6/uL (4.20-6.10); RDW 13.2 % (11.5-14.5); WBC 7.3 10x3/uL (4.8-10.8)
[2018-05-23 09:26] LABS: APTT 24.3 SECONDS (22.8-39.4); INR 0.93 (0.85-1.17); PROTIME 11.9 SECONDS (11.6-15.0)
[2018-05-23 10:01] VITALS: BP 129/80; Ht 188 cm; Wt 90.7 kg
[2018-05-23] MEDS ORDERED: OXYCODONE-APAP1 TAB PO (13:15)
--- NOTE | 2018-05-23 13:35 | NUR ---
BETADINE SWABS IN NARES X 30SEC EACH PER D.N. PRIOR TO SURGERY
--- NOTE | 2018-05-23 14:15 | NUR ---
REC'D FROM RR. NO FAMILY CURRENTLY AT BEDSIDE. DRESSING CDI. RELATES TOES ARE NUMB. EXPLAINED HAS A FEMORAL AND POPLITEAL BLOCK. SPRITE BROUGHT TO PT. VERBALIZED UNDERSTANDING.
--- NOTE | 2018-05-23 15:04 | NUR ---
PT STATES HIS PAIN IS A 9 AT THE KNEE, STATES FOOT IS NUMB
--- NOTE | 2018-05-26 10:37 | OP ---
PATIENT NAME: FAISAL ROLON MEDICAL RECORD: [id number] :68 LOCATION:D.OPS ADMISSION DATE: SURGEON: SWAPNA BRANHAM MD DATE OF OPERATION: 05/23/2018 PREOPERATIVE DIAGNOSES: 1. Anterior cruciate ligament tear of the left knee. 2. Medial tibial plateau fracture. POSTOPERATIVE DIAGNOSES: 1. Anterior cruciate ligament tear of the left knee. 2. Medial tibial plateau fracture. PROCEDURES: 1. Arthroscopically assisted anterior cruciate ligament reconstruction. 2. Arthroscopically assisted open reduction internal fixation of the tibial plateau. SURGEON: Swapna Branham MD ANESTHESIA: General. INTRAOPERATIVE COMPLICATIONS: None. SUMMARY OF PATHOLOGIC FINDINGS: Consistent with the preoperative diagnosis, the patient had a complete ACL tear as well as MRI documented bone marrow lesion of the proximal tibial plateau fixed with BioPlasty. OPERATIVE SUMMARY IN DETAIL: After obtaining the appropriate preoperative orthopedic surgery consent as well as anesthetic consultation, evaluation and clearance, the patient was brought to the operating room and placed on operating table in supine position. After general laryngeal mask airway was administered, tourniquet was placed about the proximal aspect of left lower extremity. Left lower extremity was then prepped and draped in routine sterile fashion. Leg was elevated and exsanguinated. Tourniquet was inflated to 350 mmHg. Routine inferolateral portal was established, followed by superior medial portal and inferomedial portal. Diagnostic arthroscopy basically showed a pristine joint with the exception of a torn meniscus. There was no evidence of cracks in the tibial plateau; however, depression was noted. There was no chondral surface cracks, but depression was noted. The north fork ACL was then debrided in its entirety. Notchplasty was performed. This was followed by creation of both the tibial and femoral tunnels. The prepared allografts of [id number] was then placed in both tunnels with good fixation using the TightRope system from [employer]. The knee was cycled multiple times for seating of the graft and then a transtibial anchor screw was then utilized to tie down the distal end for good fixation. The patient's Moises test was negative as was the anterior drawer sign. Having completed this, fluoroscopy was brought in and with a mix of the patient's decreased neutrophil count, PRP was mixed with powdered form of bone graft. It was then injected under fluoroscopy using the BioPlasty system from [employer] to internally fixate the bone marrow lesion. This was all done under fluoroscopic guidance. Having completed this, all wounds were closed in the usual fashion. Sterile dressings were applied. Tourniquet was deflated. The patient was awakened and taken to the recovery room in stable condition. All final needle and sponge counts were correct. OPERATIVE REPORT [id number] [id number] ZION TRANSINT:[id number] Voice Confirmation ID: [id number] DOCUMENT ID: [id number] CARROL AVINA, SWAPNA CAST at 1037 CC: [id number] DICTATION DATE: 05/24/18 1213 [place] EDGE OPERATOR: 05/24/18 1322 [facility] 05/23/18 [id number] [place] [address]
== END 2018-05-23 16:00 | disposition home or self-care (01) ==
LOC: D.OPS 08:50 → D.PAN 11:15 → D.OPS 11:15
PROVIDERS: Anesthesiology
DX: S83.512A Sprain of anterior cruciate ligament of left knee, initial encounter (principal); S82.142A Displaced bicondylar fracture of left tibia, initial encounter for closed fracture; X58.XXXA Exposure to other specified factors, initial encounter; Z01.812 Encounter for preprocedural laboratory examination

== ENCOUNTER 2018-05-27 07:17 | Day surgery (SDC) | payer BC ==
[~2018-05-27] VITALS: Ht 188 cm; Wt 90.7 kg
[~2018-05-27 07:17] MED LIST changes: +OXYCODONE-APAP1 TAB PO
[2018-05-27] MEDS ORDERED: PROTONIX40 MG PO (08:09)
[2018-05-27 08:16] VITALS: BP 117/69; Ht 188 cm; Wt 90.7 kg
[2018-05-27] MEDS ORDERED: OXYCODONE-APAP1 TAB PO (10:48)
--- NOTE | 2018-05-27 11:30 | NUR ---
PT REC'D TO ROOM VIA STRETCHER FROM PACU. DROWSY, BUT RESPONDS TO VERBAL STIMULATION. DRESSING TO RIGHT KNEE INTACT, IMMOBILIZER IN PLACE. WATER PROVIDED.
--- NOTE | 2018-05-27 11:50 | NUR ---
FULL LIQ DIET PROVIDED.
--- NOTE | 2018-05-27 12:02 | NUR ---
PT REMAINS DROWSY, RESPONDS READILY TO VERBAL STIMULI.
--- NOTE | 2018-05-27 12:13 | NUR ---
PT REMAINS DROWSY. ENCOURAGED TO DEEP BREATHE.
--- NOTE | 2018-05-27 12:28 | NUR ---
PT REMAINS DROWSY. RESPONDS READILY TO VERBAL STIMULI.
--- NOTE | 2018-05-27 13:30 | NUR ---
PT MORE AWAKE, ALERT.
--- NOTE | 2018-05-27 14:20 | NUR ---
IV D/C'D CATH INTACT.
--- NOTE | 2018-05-27 14:30 | NUR ---
D/C INSTRUCTIONS EXPLAINED TO PT AND . COPIES OF ALL GIVEN, WELL WRITTEN RX FOR PERCOCET PER DR. BRANHAM.
--- NOTE | 2018-05-27 14:40 | NUR ---
D/C'D HOME VIA W/C TO PRIVATE CAR.
--- NOTE | 2018-06-02 13:33 | OP ---
PATIENT NAME: FAISAL ROLON MEDICAL RECORD: [id number] :68 LOCATION:YASMINE ADMISSION DATE: SURGEON: SWAPNA BRANHAM MD DATE OF OPERATION: 05/27/2018 PREOPERATIVE DIAGNOSIS: Depressed medial tibial plateau fracture. POSTOPERATIVE DIAGNOSIS: Depressed medial tibial plateau fracture. PROCEDURE: Arthroscopy-assisted open reduction and internal fixation of the medial tibial plateau fracture - biologic. SURGEON: Swapna Branham MD CLARIFIER OPERATOR HELPER: Phuc Champion APN, FA INTRAOPERATIVE COMPLICATIONS: None. SUMMARY OF PATHOLOGIC FINDINGS: Consistent with preoperative MRI and preoperative radiographs, the patient had a depressed medial tibial plateau fracture. 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 Some areas of grade II chondromalacia was seen of the trochlea. Medial or lateral menisci were intact. The ACL was injured, but was obviously intact with negative anterior drawer and negative injury on direct visualization. OPERATIVE SUMMARY IN DETAIL: After obtaining the appropriate preoperative orthopedic surgery consent as well as anesthetic consultation, evaluation, and clearance, the patient was brought to the operating room and placed on the operating table in the supine position. After general laryngeal mask was administered, a tourniquet was placed about the proximal aspect of the right lower extremity. The right lower extremity was then prepped and draped in routine sterile fashion. Routine inferolateral portal was established followed by superolateral portal and inferomedial portal. Diagnostic arthroscopy was then undertaken. The above findings were noted. The small area of the medial tibial plateau in the centralized portion was depressed of approximately 3 mm. At this point, under fluoroscopy, guidepin of the Ar[employer] BioPlasty system was delivered on AP and lateral planes to the subchondral area. A 7-mm reamer was then followed by a 9-mm tamp, which was then used to very gently tamp the tibial plateau back to its appropriate position. Next, a mixture of the patient's own low neutrophil PRP and bone graft were placed into the void and held in place. Following this, the Quickset BioPlasty system from [employer] was then utilized and placed into the bone void beyond this. It was held in place with manual pressure for 8 minutes, where it was allowed to harden. After this was hardened, arthroscopy was reestablished. No fluid was seen at the site of graft and arthroscopic evaluation showed reduction of the tibial plateau osteochondral recess. Having completed this, the graft site was closed with 2-0 Vicryl followed by 4-0 Prolene. Arthroscopy portals were also closed with 4-0 Prolene. Sterile dressings were applied. Tourniquet was deflated. The patient was awakened and taken to the recovery room in stable condition. All final needle and sponge counts were correct. TRANSINT:[id number] Voice Confirmation ID: [id number] DOCUMENT ID: [id number] OPERATIVE REPORT [id number] FAISAL ROLON MD, SWAPNA CAST at 1333 CC: [id number] DICTATION DATE: 05/27/18 1051 RISK OFFICER: 05/27/18 1906 [facility] 05/27/18 [address] [place] [address]
--- NOTE | 2018-06-02 13:33 | OP ---
PATIENT NAME: FAISAL ROLON MEDICAL RECORD: [id number] :68 LOCATION:YASMINE ADMISSION DATE: SURGEON: SWAPNA BRANHAM MD DATE OF OPERATION: 05/27/2018 PREOPERATIVE DIAGNOSIS: Medial tibial plateau fracture of the right knee. POSTOPERATIVE DIAGNOSIS: Medial tibial plateau fracture of the right knee. PROCEDURE: Arthroscopically assisted open reduction internal fixation of medial tibial plateau fracture. SURGEON: Swapna Branham MD SINGLE STROKE PREFORMER: OJ Rao INTRAOPERATIVE COMPLICATIONS: None. SUMMARY OF PATHOLOGIC FINDINGS: The patient did have a depression seen at the time of arthroscopy. The Arthrex BioPlasty along with subchondroplasty systems were utilized in the following manner. The patient had a delivery of PRP and bone graft and delivered and packed followed by delivery of calcium phosphate system from [employer], this was after elevation of the plateau fracture. OPERATIVE SUMMARY IN DETAIL: After obtaining the appropriate preoperative orthopedic surgery consent as well as anesthetic consultation, evaluation and clearance, the patient was brought to the operating room and placed on the operating table in supine position. After general laryngeal mask airway was administered, tourniquet was placed about the proximal aspect of the right lower extremity. Right lower extremity was then prepped and draped in routine sterile fashion. The leg was elevated and exsanguinated, tourniquet inflated to 350 mmHg. Routine inferolateral and superior medial and inferior medial portal were established. Diagnostic arthroscopy did show the patient to have the depression of the tibial plateau. At this point, under fluoroscopic guidance, a guide pin was taken to the recess of the tibial plateau as seen on AP and lateral planes. The 7 mm drill was then used to create a path for tamping the depressed fracture back into place. This was done with a bone tamp and fluoroscopic guidance on AP and lateral planes until it was felt like the tibial plateau fracture had been elevated substantially for reduction. Arthroscopic look at this point showed no evidence of extrusion of blood or other marrow aspirate elements into the joint. At this point, a mixture of the patient's PRP as well as allograft bone were injected under fluoroscopic guidance into the defect caused from tamping the area back to a reduced position. Lastly, the calcium phosphate system was then put into place for rigid support. Hopefully, getting both osteoinductive and osteoconductive support at the area of the fracture. Having completed this, the area of the graft was closed at the periosteal level with 0 Vicryl and then followed by skin closure with 2-0 Vicryl and 4-0 Prolene was then used to close this and the patient's arthroscopic portals. Final radiographs submitted for radiologist review. Sterile dressings were applied. The patient was then awakened and taken to the recovery room in stable condition. All final needle and sponge counts were correct. TRANSINT:[id number] Voice Confirmation ID: [id number] DOCUMENT ID: [id number] OPERATIVE REPORT [id number] FAISAL ROLON MD, SWAPNA CAST at 1333 CC: [id number] DICTATION DATE: 05/31/18 1151 SOUND EQUIPMENT MECHANIC: 05/31/186 [facility] 05/27/[address] [address]
== END 2018-05-27 15:00 | disposition home or self-care (01) ==
LOC: D.OPS 07:17 → D.PAN 09:45 → D.OPS 12:30 → D.PAN 12:30 → D.OPS 15:00
DX: S82.141A Displaced bicondylar fracture of right tibia, initial encounter for closed fracture (principal); Z01.812 Encounter for preprocedural laboratory examination; X58.XXXA Exposure to other specified factors, initial encounter

== ENCOUNTER → 2018-07-22 14:42 | Outpatient (CLI) | payer BC ==
[2018-05-27 08:16] VITALS: BMI 25.7
== END | disposition home or self-care (01) ==
LOC: D.MRI 14:42
DX: M25.562 Pain in left knee (principal)

== ENCOUNTER → 2018-08-14 13:45 | Outpatient (CLI) | payer BC ==
[2018-05-27 08:16] VITALS: BMI 25.7
== END | disposition home or self-care (01) ==
LOC: D.MRI 13:30
PROVIDERS: ATTEND Orthopaedic Surgery
DX: M25.561 Pain in right knee (principal)

== ENCOUNTER 2018-08-29 10:05 | Day surgery (SDC) | payer BC ==
[2018-08-28 14:50] LABS: HEMOGLOBIN 16.4 g/dL (13.5-17.5); MCH 36.8 pg (26.0-34.0); MCHC 35.7 g/dL (31.0-37.0); MCV 103.1 fL (80.0-100.0); RBC 4.46 10x6/uL (4.20-6.10); WBC 6.6 10x3/uL (4.8-10.8)
[2018-08-28 16:02] LABS: APTT 24.1 SECONDS (22.8-39.4)
[2018-08-28 16:03] LABS: INR 1.01 (0.85-1.17); PROTIME 12.8 SECONDS (11.6-15.0)
[~2018-08-29] VITALS: Ht 188 cm; Wt 90.7 kg
[2018-08-29 11:30] VITALS: BP 160/111; Ht 188 cm; Wt 90.7 kg
[2018-08-29] MEDS ORDERED: HYDROCODON-ACE1 EA10 PO (14:15)
--- NOTE | 2018-09-12 11:33 | OP ---
PATIENT NAME: FAISAL ROLON MEDICAL RECORD: [id number] :68 LOCATION:YASMINE ADMISSION DATE: SURGEON: SWAPNA BRANHAM MD DATE OF OPERATION: 08/29/2018 PREOPERATIVE DIAGNOSIS: Medial femoral condylar fracture of the right knee. POSTOPERATIVE DIAGNOSIS: Medial femoral condylar fracture of the right knee. PROCEDURE: Arthroscopic assisted open reduction internal fixation of right medial femoral condylar fracture. SURGEON: Swapna Branham MD ANESTHESIA: General. INTRAOPERATIVE COMPLICATIONS: None. SUMMARY OF PATHOLOGIC FINDINGS: Essentially none. OPERATIVE SUMMARY IN DETAIL: After obtaining the appropriate preoperative orthopedic surgery consent as well as anesthetic consultation evaluation, and clearance, the patient was brought to the operating room and placed on the operating table in supine position. After adequate general laryngeal mask airway was administered, the patient was placed in a right lateral decubitus position and the posterior superior iliac crest was prepped and draped in routine sterile fashion. The trocar was then guided into the posterior superior iliac crest with some substantial degree of ease. It was then tamped into place and then 120 cc of blood was extracted and sent for the Sigifredo system for BMAC. This wound was then covered and bandaged. The patient was then changed to a supine position where the right lower extremity was prepared with tourniquet about the proximal aspect. The right lower extremity was then prepped and draped in routine sterile fashion. The leg was elevated and exsanguinated, tourniquet was inflated to 350 mmHg. Routine inferolateral portal was established followed by superomedial portal and inferomedial portal. Diagnostic arthroscopy showed the patient to have a perfectly healed tibial plateau from previous surgery. Under direct MRI guidance as well as fluoroscopic guidance, then, a mixture of the patient's BMAC plus AlloSync Pure was injected into the medial femoral condyle for internal fixation , this with a little degree of difficulty. No extravasation was noted. Having completed this, arthroscopy portals were closed in routine interrupted fashion using 4-0 Prolene. Sterile dressings were applied. The patient was awakened and taken to recovery room in stable condition. All final needle and sponge counts were correct. TRANSINT:[id number] Voice Confirmation ID: [id number] DOCUMENT ID: [id number] SWAPNA BRANHAM MD at 1134 CC: [id number] DICTATION DATE: 09/11/18 174 COMBINE DRIVER: 09/12/18 0451 [facility] 08/29/18 [address] [place] [address]
== END 2018-08-29 16:40 | disposition home or self-care (01) ==
LOC: D.OPS 10:05 → D.PAN 12:00 → D.OPS 16:00
PROVIDERS: Anesthesiology; ATTEND Orthopaedic Surgery
DX: S72.431A Displaced fracture of medial condyle of right femur, initial encounter for closed fracture (principal); X58.XXXA Exposure to other specified factors, initial encounter; Z01.812 Encounter for preprocedural laboratory examination

== ENCOUNTER 2018-11-21 21:10 | Observation (INO) | payer BC ==
[~2018-11-21 21:10] MED LIST changes: -GABAPENTIN100 MG; +GABAPENTIN100 MG PO; +HYDROCODON-ACE1 EA10 PO
[2018-11-21 21:34] LABS: BASOPHILS 0.1 % (0-2); EOSINOPHILS 1.2 % (0-7); HEMATOCRIT 44.1 % (42.0-54.0); HEMOGLOBIN 15.7 g/dL (13.5-17.5); IMMATURE GRANULOCYTES 0.4 % (0-5); MCH 36.4 pg (26.0-34.0); MCHC 35.6 g/dL (31.0-37.0); MCV 102.3 fL (80.0-100.0); MEAN PLATELET VOLUME 10.1 fL (7.4-10.4); MONOCYTES 14.6 % (2-11); NEUTROPHILS 65.7 % (40-80); PLATELET COUNT 198 10x3/uL (130-400); RBC 4.31 10x6/uL (4.20-6.10); RDW 13.2 % (11.5-14.5); WBC 8.5 10x3/uL (4.8-10.8)
[2018-11-21 21:43] LABS: ALBUMIN 3.5 g/dL (3.4-5.0); ALKALINE PHOSPHATASE 131 U/L (46-116); ALT (SGPT) 41 U/L (10-68); BILIRUBIN - TOTAL 0.72 mg/dL (0.2-1.3); CALC OSMOLALITY 273 mosm/kg (275-300); CALCIUM 8.2 mg/dL (8.5-10.1); CARBON DIOXIDE 21.3 mmol/L (21.0-32.0); CHLORIDE - SERUM 104 mmol/L (98-107); CREATININE - SERUM 1.5 mg/dL (0.6-1.3); GLUCOSE 91 mg/dL (74-106); POTASSIUM - SERUM 4.3 mmol/L (3.5-5.1); PROTEIN - SERUM 6.6 g/dL (6.4-8.2); SODIUM 137 mmol/L (136-145); UREA NITROGEN 12 mg/dL (7-18); eGFR NON AFRICAN AMERICAN 53 mL/min (90-120)
[2018-11-21 21:52] LABS: LIPASE 320 U/L (73-393); PRO BNP 39 pg/mL (0-125); THYROID STIMULATING HORMONE 1.25 uIU/mL (0.36-3.74); TROPONIN-I < 0.017 ng/mL (0.000-0.060)
[2018-11-21 22:30] VITALS: BP 98/65
[2018-11-21 23:30] VITALS: BP 89/61
[2018-11-22] VITALS (7 sets, daily range): BP systolic 104–128; BP diastolic 58–90; BMI 27.8
--- NOTE | 2018-11-22 01:41 | NUR ---
RECEIVED REPORT AND PATIENT FROM ER. ALERT AND ORIENTED X4. ANSWERS QUESTIONS APPROPRATLEY. C/O PAIN TO RIGHT ANKLE FROM FALL AT HOME. TELEMETRY IN PLACE. NS AT 125ML/HR. DENIES NEEDS AT THIS TIME.
--- NOTE | 2018-11-22 07:15 | NUR ---
ASSESSMENT DONE. PT STATES 10/10 PAIN IN RIGHT LEG. DR. CALLE WAS CONTACTED AND ORDER WAS RECIEVED PER TELEPHONE TO RESUME HOME PAIN MEDICATION. NO DISTRESS NOTED OTHERWISE. RESPIRATIONS EVEN AND UNLABORED. WILL CONTINUE TO MONITOR.
[2018-11-22 15:13] LABS: INR 1.17 (0.85-1.17); PROTIME 14.4 SECONDS (11.6-15.0)
--- NOTE | 2018-11-22 17:35 | NUR ---
PT SISTER CALLED AND STATED PT HAS A "SEVERE" ALCOHOL ADDICTION PROBLEM WELL A PERCOCET ADDICTION. SAID SHE DIDNT WANT PT OR PT TO KNOW SHE CALLED.
--- NOTE | 2018-11-22 18:13 | NUR ---
I have reviewed this patient and I concur with the Shift Assessment completed by the Licensed Practical Nurse today this shift.
--- NOTE | 2018-11-23 00:20 | NUR ---
ASSESSED AT THE BEGINNING OF THE SHIFT. PT IS ALERT AND ORIENTED, ABLE TO VERBALZIE NEEDS. HE HAS BEEN WEARING HIS BOOT WHICH IS HELPING WITH COMFORT AND KEEPING HIM FROM BUMPING HIS LEG. AT SHIFT CHANGE HE WAS GIVEN PAIN MEDS AND HE SLEPT FOR A WHILE AND NOW HE IS WATCHING TV. HE HAS NOT REQUESTED ANY MORE PAIN MEDS BUT DID TAKE A SNACK WHEN OFFERED. WILL CONTINUE TO MONITOR.
[2018-11-23 04:13] VITALS: BP 136/84
[2018-11-23 06:56] LABS: BASOPHILS 0.2 % (0-2); EOSINOPHILS 1.7 % (0-7); HEMATOCRIT 41.3 % (42.0-54.0); HEMOGLOBIN 14.4 g/dL (13.5-17.5); IMMATURE GRANULOCYTES 0.2 % (0-5); LYMPHOCYTES 18.7 % (15-50); MCH 35.8 pg (26.0-34.0); MCHC 34.9 g/dL (31.0-37.0); MCV 102.7 fL (80.0-100.0); MEAN PLATELET VOLUME 10.1 fL (7.4-10.4); MONOCYTES 15.8 % (2-11); NEUTROPHILS 63.4 % (40-80); RBC 4.02 10x6/uL (4.20-6.10); RDW 12.9 % (11.5-14.5)
[2018-11-23 07:00] LABS: PLATELET COUNT 157 10x3/uL (130-400)
[2018-11-23 07:08] LABS: ALBUMIN 2.9 g/dL (3.4-5.0); ALKALINE PHOSPHATASE 113 U/L (46-116); CALCIUM 8.3 mg/dL (8.5-10.1); CARBON DIOXIDE 25.2 mmol/L (21.0-32.0); CHLORIDE - SERUM 108 mmol/L (98-107); GLUCOSE 98 mg/dL (74-106); MAGNESIUM - SERUM 1.8 mg/dL (1.8-2.4); POTASSIUM - SERUM 4.1 mmol/L (3.5-5.1); PROTEIN - SERUM 5.8 g/dL (6.4-8.2); SODIUM 140 mmol/L (136-145)
[2018-11-23 07:09] LABS: ALT (SGPT) 28 U/L (10-68); CALC OSMOLALITY 276 mosm/kg (275-300); CREATININE - SERUM 0.8 mg/dL (0.6-1.3); UREA NITROGEN 6 mg/dL (7-18); eGFR NON AFRICAN AMERICAN > 90 mL/min (90-120)
[2018-11-23 08:03] VITALS: BP 128/80
--- NOTE | 2018-11-23 08:26 | NUR ---
ROUNDING DONE WITH PATIENT HAVING NO NEEDS VOICED. ON HEART MONITOR SHOWING SR, HR 83. ON ROOM AIR. RIGHT HAND PIV SEEN WITH NS INFUSING AT 125 CC/HR. ON EP, LABS ARE WNL. URINAL EMPTIED WITH YELLOW URINE.
--- NOTE | 2018-11-23 11:15 | NUR ---
PT RESTING IN BED. NO ACUTE DISTRESS NOTED. REPORTS PAIN 8/10 TO RIGHT LOWER EXTREMITY. WALKING BOOT IN PLACE. EXTREMITY WARM TO TOUCH, ABLE TO MOVE TOES. IV TO RIGHT HAND PATENT WITH NS @ 125 ML/HR INFUSING VIA PUMP. SITE WITHOUT REDNESS OR EDEMA. PAIN MEDICATION TO BE ADMINISTERED PER MD ORDERS. DENIES FURTHER NEEDS AT THIS TIME. CL WITHIN REACH. ENCOURAGED TO CALL WITH NEEDS. CONTINUE POC
[2018-11-23 11:43] VITALS: BP 132/84
--- NOTE | 2018-11-23 12:51 | NUR ---
SABINE RIOS APN PAGED AND CALLED TO SEE ABOUT REVIEWING HIS HOME MEDS. SHE STATES THAT SHE WILL.
[2018-11-23 15:43] VITALS: BP 131/85
--- NOTE | 2018-11-23 17:53 | NUR ---
DR SAMUEL TO MAKE ROUNDS, PATIENT MAY BE DISCHARGED WHEN ORDERS ARE PLACED.
--- NOTE | 2018-11-23 19:24 | NUR ---
PATIENT RESTING IN BED WITH NO S/S OF DISTRESS AND DENIES NEEDS AT THIS TIME. BED IN LOWEST POSITION AND CL WITHIN REACH. ENCOURAGED THE PATIENT TO CALL IF HE HAS NEEDS. WILL CONTINUE TO MONITOR.
--- NOTE | 2018-11-23 21:43 | NUR ---
PATIENT TAKEN TO FRONT DOOR VIA WHEELCHAIR BY TELEPHONE ANSWERING SERVICE OPERATOR.
--- NOTE | 2018-11-25 07:56 | MORECARE ---
CASE MANAGEMENT DISCHARGE SUMMARY PATIENT: FAISAL ROLON UNIT: [id number] ADM DATE: 11/21/18 AGE: 48 : 68 SEX: M ROOM/BED: D.1207 AUTHOR: MATILDA COLLINS PHYSICIAN: REFERRING PHYSICIAN: SEGUN CALLE MD DATE OF SERVICE: 11/25/18 Discharge Plan Patient Name: [facility]ISAL [facility]OL[facility] [facility] 1970 Planned Disposition: Anticipated Discharge Date: Discharge Date: 11/23/2018 Expected LOS: Initial Reviewer: [email or web address] Initial Review Date: 11/22/2018 Generated: 11/25/18 8:56 am Patient Name: FAISAL ROLON Page [phone] at 0756 All edits/amendments must be made on the electronic document DICTATION DATE: 11/25/18 0756 SHELL MOLD BONDING MACHINE OPERATOR: LUDY 11/25/18 0756 RPT#: [id number] DC DATE:11/23/18 STATUS: DIS IN [facility] [address] [place] [address] END OF REPORT
== END 2018-11-23 21:48 | disposition home or self-care (01) ==
LOC: D.ER 21:10 → D.M3 23:30 → OBSVTIME 23:30 → D.M3 11-23 21:48
PROVIDERS: Family Medicine; Orthopaedic Surgery; ADMIT Family Medicine; ATTEND Family Medicine
DX: I95.9 Hypotension, unspecified (principal); R55 Syncope and collapse; E86.0 Dehydration; S82.891A Other fracture of right lower leg, initial encounter for closed fracture; W19.XXXA Unspecified fall, initial encounter; I10 Essential (primary) hypertension; D45 Polycythemia vera; Z79.01 Long term (current) use of anticoagulants; M25.561 Pain in right knee; Z86.73 Personal history of transient ischemic attack (TIA), and cerebral infarction without residual deficits; Z87.891 Personal history of nicotine dependence

== ENCOUNTER → 2019-01-30 13:17 | Outpatient (CLI) | payer BC ==
[2018-11-22 14:36] VITALS: BMI 27.8
== END | disposition home or self-care (01) ==
LOC: D.MRI 13:00
PROVIDERS: ATTEND Orthopaedic Surgery
DX: M87.08 Idiopathic aseptic necrosis of bone, other site (principal)

== ENCOUNTER → 2019-04-10 10:34 | Outpatient (CLI) | payer BC ==
[2018-11-22 14:36] VITALS: BMI 27.8
== END | disposition home or self-care (01) ==
LOC: D.MRI 10:34
PROVIDERS: ATTEND Orthopaedic Surgery
DX: S82.91XA Unspecified fracture of right lower leg, initial encounter for closed fracture (principal)

== ENCOUNTER 2019-05-26 11:06 | Day surgery (SDC) | payer BC ==
[~2019-05-26] VITALS: Ht 188 cm; Wt 97.5 kg
[~2019-05-26 11:06] MED LIST changes: +ADCIRCA20 MG PO; +BELSOMRA20 MG PO; +LOPRESSOR25 MG PO; +TESTOSTERONE CYP
[2019-05-26 11:55] VITALS: BP 113/66; Ht 188 cm; Wt 97.5 kg
[2019-05-26 11:57] LABS: HEMATOCRIT 44.8 % (42.0-54.0); HEMOGLOBIN 15.7 g/dL (13.5-17.5); MCH 35.4 pg (26.0-34.0); MCV 101.1 fL (80.0-100.0); MEAN PLATELET VOLUME 10.1 fL (7.4-10.4); RBC 4.43 10x6/uL (4.20-6.10); RDW 14.1 % (11.5-14.5); WBC 13.1 10x3/uL (4.8-10.8)
[2019-05-26 11:59] LABS: APTT 23.8 SECONDS (22.8-39.4); INR 1.05 (0.85-1.17); PROTIME 13.2 SECONDS (11.6-15.0)
[2019-05-26] MEDS ORDERED: PERCOCET 10-321 EAC1 PO (15:42)
--- NOTE | 2019-05-29 09:31 | OP ---
PATIENT NAME: FAISAL ROLON MEDICAL RECORD: [id number] :68 LOCATION:D.OPS ADMISSION DATE: SURGEON: SWAPNA BRANHAM MD DATE OF OPERATION: 05/26/2019 PREOPERATIVE DIAGNOSIS: Chronic right ankle instability. POSTOPERATIVE DIAGNOSIS: Chronic right ankle instability. PROCEDURES: 1. Right ankle Brostrom procedure. 2. Internal bracing of the right ankle. SURGEON: Swapna Branham MD R[employer]ER [employer]: Thiago Napier. INTRAOPERATIVE COMPLICATIONS: None. SUMMARY OF PATHOLOGIC FINDINGS: The AITF and the calcaneal fibular ligament were essentially gone, dissection was carried to the periosteum. No intact ligamentous structures were found. Therefore, I chose to do an internal brace from the fibula to the neck of the talus as well as the Brostrom procedure. OPERATIVE SUMMARY IN DETAIL: After obtaining the appropriate preoperative orthopedic surgery consent as well as anesthetic consultation, evaluation and clearance, the patient was brought to the operating room and placed on the operating table in supine position. After general laryngeal mask airway was administered, the patient was placed in left lateral decubitus position. All pressure points were well padded to include down leg peroneal pad as well as axillary roll. The patient was held firmly to the operating table using the vacuum pack suction system. A tourniquet was placed about the proximal aspect of the right lower extremity. Right lower extremity was then prepped and draped in routine sterile fashion. At this point, appropriate timeout was taken and agreed upon by all. The leg was elevated and exsanguinated, tourniquet was inflated to 350 mmHg. A routine anterior curvilinear incision was made over the lateral aspect of the ankle in keeping with a Brostrom approach. Dissection was carried down to the ankle joint itself and again the patient had the entire AITF complex as well as calcaneofibular ligament loose. At this point, the decision was made to proceed with an internal brace, 4.75 SwiveLock was placed in the neck of the talus as well as a 4.75 SwiveLock placed in the distal anterior part of the fibula using the hemostat tip technique to avoid over tightening. Having completed this and done so with the foot in flexion and slight eversion, the foot was stabilized. The double tails of the second 4.75 SwiveLock were utilized then in a Brostrom repair technique. They were taken and placed down through the residual structures of the AITF and calcaneofibular ligament brought back up and tightened and anchored into the fibula using 2-6 PushLocks. This resulted in excellent anatomic repair. Then, a 0 FiberWire was utilized to oversew the residual periosteum in a ibols-crlh-zruy maneuver to complete the Brostrom procedure. At this point, the wound was closed with 2-0 Vicryl followed by 4-0 Prolene in a running fashion done by Thiago Napier. Sterile dressings were applied. Tourniquet was deflated. A posterior L&U splint was put on with slight eversion and ankle flexion. The patient was then awakened and taken to recovery room in stable condition. All final needle and sponge counts were correct. OPERATIVE REPORT [id number] FAISAL ROLON TRANSINT:[id number] Voice Confirmation ID: [id number] DOCUMENT ID: [id number] CARROL AVINA, SWAPNA CAST at 0931 CC: [id number] DICTATION DATE: 05/27/19 1032 LAB SYSTEMS ANALYST: 05/27/19 1413 [facility] 05/26/19 [facility] [address] [place] [address]
== END 2019-05-26 18:25 | disposition home or self-care (01) ==
LOC: D.OPS 11:06 → D.PAN 16:00 → D.OPS 16:00
PROVIDERS: Anesthesiology; ATTEND Orthopaedic Surgery
DX: M25.371 Other instability, right ankle (principal); M79.671 Pain in right foot; M25.562 Pain in left knee; M25.561 Pain in right knee; S93.401A Sprain of unspecified ligament of right ankle, initial encounter; X58.XXXA Exposure to other specified factors, initial encounter

== ENCOUNTER → 2019-07-18 08:07 | Outpatient (CLI) | payer BC ==
[2019-05-26 11:55] VITALS: BMI 27.6
[~2019-07-18 08:07] MED LIST changes: +PERCOCET 10-321 EAC1 PO
== END | disposition home or self-care (01) ==
LOC: D.LABREF 08:07
PROVIDERS: ATTEND Clinical Nurse Specialist Family Health
DX: M25.571 Pain in right ankle and joints of right foot (principal)

== ENCOUNTER 2019-07-24 09:32 | Day surgery (SDC) | payer SELFPAY ==
[~2019-07-24] VITALS: Ht 188 cm; Wt 99.8 kg
[2019-07-24 09:57] LABS: HEMATOCRIT 41.1 % (42.0-54.0); HEMOGLOBIN 14.3 g/dL (13.5-17.5); MCH 34.5 pg (26.0-34.0); MCHC 34.8 g/dL (31.0-37.0); MEAN PLATELET VOLUME 9.1 fL (7.4-10.4); RBC 4.15 10x6/uL (4.20-6.10); RDW 13.3 % (11.5-14.5); WBC 11.2 10x3/uL (4.8-10.8)
[2019-07-24 10:06] LABS: APTT 24.7 SECONDS (22.8-39.4); INR 1.04 (0.85-1.17); PROTIME 13.6 SECONDS (11.6-15.0)
[2019-07-24 10:13] VITALS: BP 133/85; Ht 188 cm; Wt 99.8 kg
[2019-07-24] MEDS ORDERED: SMZ-TMP DS TABL1 TAB PO (12:19)
[2019-07-24] MEDS ORDERED: PERCOCET 10-321 EAC1 PO (12:19)
--- NOTE | 2019-07-24 17:16 | NUR ---
1450 PT REPORTING / PAIN. ANESTHESIA CALLED AND POPLITEAL RE-BLOCKED. AFTER PATIENT REPORTS 0 PAIN.
--- NOTE | 2019-07-28 08:42 | OP ---
PATIENT NAME: FAISAL ROLON MEDICAL RECORD: [id number] :68 LOCATION:D.OPS ADMISSION DATE: SURGEON: SWAPNA BRANHAM MD DATE OF OPERATION: 07/24/2019 PREOPERATIVE DIAGNOSIS: Infected right ankle, status post Brostrom procedure. POSTOPERATIVE DIAGNOSIS: Infected right ankle, status post Brostrom procedure. PROCEDURE: Excisional debridement of infected right ankle to include skin, subcutaneous tissue, portions of fat, fascia, muscle as well as the previously placed sutures. SURGEON: Swapna Branham MD SPECIAL DAY CLASS TEACHER: CHEYANNE Martines Please note that intraoperative cultures were taken along with a DNA cultures. OPERATIVE SUMMARY IN DETAIL: After obtaining the appropriate preoperative orthopedic surgery consent as well as anesthetic consultation, evaluation and clearance, the patient was brought to the operating room and placed on the operating table in a supine position. After general laryngeal mask airway was administered, the patient's right lower extremity was then prepped and draped in routine sterile fashion. The small aperture was compressed and copious amounts of phlegmon appearing material was removed. This was cultured with both traditional culturing as well as the polymerization chain DNA amplification system. At this point, the surgical incision was elongated. A combination of scalpel, rongeur, and curettage were utilized to debride all nonviable appearing material. The lateral aspect of the talus was visualized. The ankle was moved back and forth while copious irrigation was carried out of the entire ankle. Irrigation was carried out until the fluid was clear. The ankle wound was then closed with 3-0 Prolene in an interrupted deep fashion. Sterile dressings were applied. A posterior L and U splint was applied. The patient then awakened and taken to the recovery room in stable condition. All final needle and sponge counts were correct. TRANSINT:[id number] Voice Confirmation ID: [id number] DOCUMENT ID: [id number] SWAPNA BRANHAM MD at 0842 CC: [id number] DICTATION DATE: 07/24/19 1222 MECHANICAL FIELD ENGINEER: 07/24/192110 [facility] 07/24/19 [id number] [place] [address]
== END 2019-07-24 14:50 | disposition home or self-care (01) ==
LOC: D.OPS 09:32 → D.PAN 11:45 → D.OPS 11:45 → D.PAN 12:15 → D.OPS 14:50
PROVIDERS: Anesthesiology; ATTEND Orthopaedic Surgery
DX: T81.42XA Infection following a procedure, deep incisional surgical site, initial encounter (principal); S93.401A Sprain of unspecified ligament of right ankle, initial encounter; S82.91XA Unspecified fracture of right lower leg, initial encounter for closed fracture; M25.561 Pain in right knee

== ENCOUNTER 2019-07-31 11:44 | Inpatient (IN) | payer MEDICAID ==
[2019-07-31] VITALS (8 sets, daily range): BP systolic 111–119; BP diastolic 67–85; BMI 25.7; BMI 27.0
[~2019-07-31] VITALS: Ht 188 cm; Wt 95.3 kg
[~2019-07-31 11:44] MED LIST changes: +SMZ-TMP DS TABL1 TAB PO
[2019-07-31 12:09] LABS: BASOPHILS 0.2 % (0-2); EOSINOPHILS 1.1 % (0-7); HEMATOCRIT 44.1 % (42.0-54.0); HEMOGLOBIN 15.5 g/dL (13.5-17.5); IMMATURE GRANULOCYTES 2.1 % (0-5); LYMPHOCYTES 16.7 % (15-50); MCH 35.2 pg (26.0-34.0); MCHC 35.1 g/dL (31.0-37.0); MCV 100.2 fL (80.0-100.0); MEAN PLATELET VOLUME 9.6 fL (7.4-10.4); MONOCYTES 12.5 % (2-11); NEUTROPHILS 67.4 % (40-80); PLATELET COUNT 243 10x3/uL (130-400); RDW 13.7 % (11.5-14.5); WBC 11.5 10x3/uL (4.8-10.8)
[2019-07-31 12:30] LABS: APTT 25.7 SECONDS (22.8-39.4); PROTIME 13.2 SECONDS (11.6-15.0)
--- NOTE | 2019-07-31 16:59 | NUR ---
AT 1530 PATIENT VOIDED 300CC IN URINAL IN PACU.
--- NOTE | 2019-07-31 19:57 | NUR ---
PT IN BED, AAO X 3, RESP EVEN AND UNLABORED. LUNGS CTA, PT HAS DILAUDID WELLNESS COACH, NO C/O PAIN NOTED. TIGHT FOOT ELEVATED ON PILLOWS, ICE PACK IN PLACE TO R ANKLE, WOUND VAC RUNNING AT 125MM/HG T RIGHT ANKLE. 1/2 NS INFUSING AT 50CC/HR TO LEFT HAND. NO REDNESS, SWELLING NOTED TO SITE, PT HAS NO CONCERNS OR WANTS NOTED AT THIS TIME.
[2019-08-01] VITALS (7 sets, daily range): BP systolic 100–150; BP diastolic 68–79; Ht 188 cm; Wt 95.3 kg
--- NOTE | 2019-08-01 03:03 | NUR ---
I have reviewed this patient and I concur with the Shift Assessment completed by the Licensed Practical Nurse today this shift.
--- NOTE | 2019-08-01 07:30 | NUR ---
REC'D IN BED AWAKE AND ALERT. RESP EVEN AND UNLABORED WITH NO DISTRESS NOTED. CAN EXPRESS NEEDS AND WANTS. NO C/O NOTED OR VOICED. ASSESSMENT COMPLETED. C/L IN REACH AT BEDSIDE.
[2019-08-01 09:17] LABS: HEMATOCRIT 39.6 % (42.0-54.0); HEMOGLOBIN 13.6 g/dL (13.5-17.5); LYMPHOCYTES 5.8 % (15-50); MCH 34.3 pg (26.0-34.0); MCHC 34.3 g/dL (31.0-37.0); MCV 99.7 fL (80.0-100.0); MEAN PLATELET VOLUME 9.7 fL (7.4-10.4); NEUTROPHILS 87.8 % (40-80); RBC 3.97 10x6/uL (4.20-6.10); RDW 13.3 % (11.5-14.5); WBC 11.1 10x3/uL (4.8-10.8)
[2019-08-01 09:19] LABS: PLATELET COUNT 183 10x3/uL (130-400)
[2019-08-01 09:32] LABS: ANION GAP 13.3 mmol/L (8-16); C-REACTIVE PROTEIN 0.7 mg/dL (0.0-0.9); CARBON DIOXIDE 25.3 mmol/L (21.0-32.0); CREATININE - SERUM 1.2 mg/dL (0.6-1.3); POTASSIUM - SERUM 4.6 mmol/L (3.5-5.1)
[2019-08-01 10:48] LABS: ERYTHROCYTE SEDIMENTATION RATE 19 mm/hr (0-20)
--- NOTE | 2019-08-01 12:46 | NUR ---
I have reviewed this patient and I concur with the Shift Assessment completed by the Licensed Practical Nurse today this shift.
--- NOTE | 2019-08-01 15:09 | MORECARE ---
CASE MANAGEMENT DISCHARGE SUMMARY PATIENT: FAISAL KILLIAN UNIT: [id number] ADM DATE: 07/31/19 AGE: 49 : 68 SEX: M ROOM/BED: D.2227 AUTHOR: DENNIS,DOC PHYSICIAN: REFERRING PHYSICIAN: SWAPNA BRANHAM MD DATE OF SERVICE: 08/01/19 Discharge Plan Patient Name: FAISAL KILLIAN Facility: [facility]:[place] : 1970 Planned Disposition: Home with Home Health Anticipated Discharge Date: Discharge Date: Expected LOS: Initial Reviewer: [email or web address] Initial Review Date: 08/01/2019 Generated: 08/01/19 4:08 pm Comments DCP- Discharge Planning Updated by [email or web address]: Paola Bo on 08/01/19 12:[address] I have spoke with Karissa with [facility] an faxed for wound vac. I have faxed clinical along with sensitivities from wound cx from June to [employer] and [facility] [employer] to smith antibiotics and see if they can take a patient with Medicaid pending. CM will continue to follow and assist with discharge planning/needs. DCPIA - Discharge Planning Initial Assessment Updated by [email or web address]: Paola Bo on 08/01/19 3:06 pm * Is the patient Alert and Oriented? Yes * How many steps to enter\exit or inside your home? 2/0 * PCP Dr. Antoine on [facility] * Pharmacy [facility] on [address] * Preadmission Environment Home with Family * ADLs Independent * Equipment Cane Crutch Walker * Other Equipment Walking boot * List name and contact numbers for known caregivers / representatives who currently or will assist patient after discharge: Anurag Killian - [facility] - [phone] * Verbal permission to speak to the caregivers and representatives has been obtained from the patient. Yes * Community resources currently utilized None * Additional services required to return to the preadmission environment? Yes * Can the patient safely return to the preadmission environment? Yes * Has this patient been hospitalized within the prior 30 days at any hospital? No External Providers [facility] Next Contact Date: Service Request Date: Service Type: Resolution: Reviewer: Comments: External Provider: [facility] Next Contact Date: Service Request Date: Service Type: Resolution: Reviewer: Comments: External Provider: [facility] [employer] Next Contact Date: Service Request Date: Service Type: Resolution: Reviewer: Comments: Patient Name: FAISAL KILLIAN Page [phone] at 1509 All edits/amendments must be made on the electronic document DICTATION DATE: 08/01/198 PRINTING BINDERY ASSISTANT: LUDY 08/01/19 1508 RPT#: [id number] DC DATE: STATUS: ADM IN [facility] [address] [place] [address] END OF REPORT
--- NOTE | 2019-08-01 15:18 | MORECARE ---
CASE MANAGEMENT DISCHARGE SUMMARY PATIENT: FAISAL KILLIAN UNIT: [id number] ADM DATE: 07/31/19 AGE: 49 : [birth year] SEX: M ROOM/BED: D.2227 AUTHOR: DENNIS,DOC PHYSICIAN: REFERRING PHYSICIAN: SWAPNA BRANHAM MD DATE OF SERVICE: 08/01/19 Discharge Plan Patient Name: FAISAL KILLIAN Facility: [facility]:[place] : 1970 Planned Disposition: Home with Home Health Anticipated Discharge Date: Discharge Date: Expected LOS: Initial Reviewer: [email or web address] Initial Review Date: 08/01/2019 Generated: 08/01/19 4:18 pm Comments DCP- Discharge Planning Updated by [email or web address]: Paola Bo on 08/01/19 2:[address] Patient Name: FAISAL KILLIAN Admission Status: Elective Accout number: [id number] Admission Date: 07-31-2019 : 1970 Admission Diagnosis: Attending: SWAPNA BRANHAM Current LOS: 1 Anticipated DC Date: Planned Disposition: Home with Home Health Primary Insurance: MEDICAID [place] PENDING Discharge Planning Comments: CM met with patient to discuss discharge planning/needs. He lives with his in a one story home. States he plans to return home with his . He states his will be able to assist with IV medications at home. I have called Ray with [facility] and he states they can take the patient as Medicaid pending. I spoke with Melinda with [facility] and Luis Angel with [employer] and they will get some smith quotes on the sensitive medications, including Vancomycin. I am awaiting Dr. Branham's signature on the wound vac order form to complete the process for the wound vac. CM will continue to follow and assist with discharge planning/needs. Special Weapons Unit Officer: Paola Bo DCP- Discharge Planning Updated by [id number]: Paola Bo on 08/01/19 12:[address] I have spoke with Karissa with [facility] an faxed for wound vac. I have faxed clinical along with sensitivities from wound cx from June to [facility] and [facility] to smith antibiotics and see if they can take a patient with Medicaid pending. CM will continue to follow and assist with discharge planning/needs. DCPIA - Discharge Planning Initial Assessment Updated by [email or web address]: Paola Bo on 08/01/19 3:06 pm * Is the patient Alert and Oriented? Yes * How many steps to enter\exit or inside your home? 2/0 * PCP Dr[facility] Antoine on [facility] * [facility] * Preadmission Environment Home with Family * ADLs Independent * Equipment Cane Crutch Walker * Other Equipment Walking boot * List name and contact numbers for known caregivers / representatives who currently or will assist patient after discharge: Anurag Killian - [facility] - [phone] * Verbal permission to speak to the caregivers and representatives has been obtained from the patient. Yes * Community resources currently utilized None * Additional services required to return to the preadmission environment? Yes * Can the patient safely return to the preadmission environment? Yes * Has this patient been hospitalized within the prior 30 days at any hospital? No Coverage Notice Reviewer: [id number] - Paola Bo Notice Issued Date-Time: 08/01/2019 9:15 Notice Type: Patient Choice Letter Notice Delivered To: Patient Relationship to Patient: Self Director Of Religious Life Name: Delivery Method: HAND - Hand Delivered Eliza Days: Prior Verbal Notification: Recipient Understood Notice: Yes Recipient Signature: Yes Med Rec Note Co-signed by Attending: Coverage Notice Comment: [place] for [facility] or [facility]. He states he will use whoever will accept his Medicaid pending insurance. Last DP export: 08/01/19 2:09 pm Patient Name: FAISAL KILLIAN Page [phone] at 1518 All edits/amendments must be made on the electronic document DICTATION DATE: 08/01/19 1518 RESTAURANT AND BAR MANAGER: LUDY 08/01/19 1518 RPT#: [id number] DC DATE: STATUS: ADM IN [facility] [address] [place] [address] END OF REPORT
--- NOTE | 2019-08-01 20:00 | NUR ---
ALERT RESTING IN BED, DENIES PAIN OR NEEDS AT THIS TIME, LEFT FOOT ELEVATED ON PILLOWS, WITH WOUND VAC IN USE, SEE SHIFT ASSESSNMENT, CALL LIGHT IN REACH
[2019-08-02] VITALS: BP 103/78
[2019-08-02 04:00] VITALS: BP 124/89
[2019-08-02 05:00] LABS: HEMATOCRIT 38.3 % (42.0-54.0); HEMOGLOBIN 13.4 g/dL (13.5-17.5); RBC 3.72 10x6/uL (4.20-6.10); RDW 13.6 % (11.5-14.5)
[2019-08-02 05:19] LABS: CALC OSMOLALITY 281 mosm/kg (275-300); CALCIUM 8.4 mg/dL (8.5-10.1); CARBON DIOXIDE 28.4 mmol/L (21.0-32.0); CHLORIDE - SERUM 107 mmol/L (98-107); GLUCOSE 119 mg/dL (74-106); POTASSIUM - SERUM 4.4 mmol/L (3.5-5.1); SODIUM 141 mmol/L (136-145); UREA NITROGEN 12 mg/dL (7-18); eGFR NON AFRICAN AMERICAN 84 mL/min (90-120)
[2019-08-02 07:58] VITALS: BP 112/74
[2019-08-02 12:24] VITALS: BP 113/70
[2019-08-02 19:43] VITALS: BP 108/53; BP 110/62
--- NOTE | 2019-08-02 21:20 | NUR ---
AWAKE,ALERT,NO COMPAITNS VOICED. RAGS LABORER DILAUDID IN USE FOR PAIN CONTROL.WOUND VAC INTACT TO RIGHT ANKLE. IV TO RFA INTACT WITHOUT REDNESS OR EDEMA NOTED. CL IN REACH
[2019-08-03] VITALS: BP 103/61
--- NOTE | 2019-08-03 03:29 | NUR ---
I have reviewed this patient and I concur with the Shift Assessment completed by the Licensed Practical Nurse today this shift.
[2019-08-03 04:00] VITALS: BP 103/70
[2019-08-03 05:22] LABS: HEMATOCRIT 36.9 % (42.0-54.0); HEMOGLOBIN 12.3 g/dL (13.5-17.5); MCH 34.3 pg (26.0-34.0); MCHC 33.3 g/dL (31.0-37.0); MCV 102.8 fL (80.0-100.0); MEAN PLATELET VOLUME 9.9 fL (7.4-10.4); RBC 3.59 10x6/uL (4.20-6.10); RDW 13.7 % (11.5-14.5); WBC 6.2 10x3/uL (4.8-10.8)
[2019-08-03 05:39] LABS: CALC OSMOLALITY 279 mosm/kg (275-300); CARBON DIOXIDE 25.8 mmol/L (21.0-32.0); CHLORIDE - SERUM 108 mmol/L (98-107); CREATININE - SERUM 0.9 mg/dL (0.6-1.3); GLUCOSE 111 mg/dL (74-106); POTASSIUM - SERUM 4.1 mmol/L (3.5-5.1); SODIUM 141 mmol/L (136-145); eGFR NON AFRICAN AMERICAN > 90 mL/min (90-120)
[2019-08-03 05:45] LABS: UREA NITROGEN 8 mg/dL (7-18)
[2019-08-03 09:43] VITALS: BP 108/61
--- NOTE | 2019-08-03 10:31 | NUR ---
PT SITTING UP IN BED EATING BREAKFAST, NO S/SX OF DISTRESS, PT DIRECTOR MOBILE ALARMING NEAR END, CHANGED OUT DIRECTOR MOBILE. CL IN REACH CONTINUE WITH PLAN OF CARE
[2019-08-03 12:53] VITALS: BP 109/69
--- NOTE | 2019-08-03 14:49 | NUR ---
I have reviewed this patient and I concur with the Shift Assessment completed by the Licensed Practical Nurse today this shift.
[2019-08-03 17:53] VITALS: BP 105/53
[2019-08-03 20:00] VITALS: BP 108/66
--- NOTE | 2019-08-03 20:30 | NUR ---
WATCHING TV QUIELTY WITH NO COMPLAINTS VOCIED. RESP EVEN AND UNLABORED. O2 @ 2L PER NC ON. NO DISTESS NOTED. WOUND VAC INTACT TO RIGHT ANKLE. IV TO RFA INTACT WITHOUT REDNESS OR EDEMA NOTED. PAC DILAUDID IN USE FOR PAIN CONTROL
[2019-08-04] VITALS: BP 110/69
[2019-08-04 04:00] VITALS: BP 105/69
--- NOTE | 2019-08-04 04:02 | NUR ---
I have reviewed this patient and I concur with the Shift Assessment completed by the Licensed Practical Nurse today this shift.
[2019-08-04 05:45] LABS: HEMATOCRIT 38.2 % (42.0-54.0); MCH 34.2 pg (26.0-34.0); MEAN PLATELET VOLUME 9.8 fL (7.4-10.4); RBC 3.8 10x6/uL (4.20-6.10); RDW 13.4 % (11.5-14.5); WBC 6.8 10x3/uL (4.8-10.8)
[2019-08-04 06:15] LABS: INR 1.03 (0.85-1.17); PROTIME 13.4 SECONDS (11.6-15.0)
[2019-08-04 06:33] LABS: CALC OSMOLALITY 276 mosm/kg (275-300); CALCIUM 8.2 mg/dL (8.5-10.1); CARBON DIOXIDE 25.9 mmol/L (21.0-32.0); CHLORIDE - SERUM 105 mmol/L (98-107); GLUCOSE 92 mg/dL (74-106); POTASSIUM - SERUM 4.2 mmol/L (3.5-5.1); SODIUM 139 mmol/L (136-145); UREA NITROGEN 9 mg/dL (7-18); VANCOMYCIN - TROUGH 36.5 ug/mL (10.0-20.0); eGFR NON AFRICAN AMERICAN 84 mL/min (90-120)
[2019-08-04 06:37] LABS: MCV 100.5 fL (80.0-100.0)
--- NOTE | 2019-08-04 08:42 | OP ---
PATIENT NAME: FAISAL ROLON MEDICAL RECORD: [id number] :[birth year] LOCATION:D.MS [id number] ADMISSION DATE:07/31/19 SURGEON: SWAPNA BRANHAM MD DATE OF OPERATION: 07/31/2019 PREOPERATIVE DIAGNOSIS: Infected right ankle, status post Brostrom procedure. PREOPERATIVE DIAGNOSIS: Infected right ankle, status post Brostrom procedure. PROCEDURE: 1. Excisional debridement to include skin, subcutaneous tissue, portions of fat, fascia, muscle, and bone. 2. Placement of a negative pressure dressing. SURGEON: Swapna Branham MD ENERGY EFFICIENT SITE MANAGER: Thiago Napier. INTRAOPERATIVE COMPLICATIONS: Essentially none; however, at the time of a second repeat I&D, the patient was found to have findings consistent with lateral malleolar osteomyelitis. INDICATIONS: A 49-year-old gentleman who had a stabilization procedure at the time of his first return. His splint was found to be copiously wet consistent with getting his cast wet with bathing or shower. We did put him on antibiotics, his wound opened up. 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 Prior to surgery today, he did have an increased white count with a left shift. The plan was to do a repeat debridement with closure; however, I do feel like this has gone from a sterile synovial cutaneous fistula to an infected synovial cutaneous fistula. As such, new cultures were taken including DNA, reverse polymerase chain testing and a wound VAC was placed. I will admit him into the hospital postoperatively for IV antibiotics, which he may have to have for a prolonged amount of time as this has become a septic arthritis problem. OPERATIVE SUMMARY IN DETAIL: After obtaining the appropriate preoperative orthopedic surgery consent as well as anesthetic consultation, evaluation and clearance, the patient was brought to the operating room and placed on the operating table in a supine position. After adequate general laryngeal mask airway was administered, tourniquet was placed about the proximal aspect of the right lower extremity. Note, it was not used during this case. Right lower extremity was then prepped and draped in routine sterile fashion. Immediately upon examination evaluation, flexion, extension of the ankle showed a non-clear synovial aspirate. DNA and standard cultures were taken at this point. Having completed this, antibiotics were given. Serial and sequential debridement to include curettage, rongeur and scalpel were utilized. Previously placed suture anchors along with all of the preplaced FiberWires were taken down. The lateral articular surface of the talus was clearly visual through the wound. Copious irrigation was then followed by placement of a silver sponge at 125 mmHg with continuous suction at medium intensity. Good seal was achieved. The patient was then awakened and taken to the recovery room in stable condition. All final needle and sponge counts were correct. TRANSINT:[id number] Voice Confirmation ID: [id number] DOCUMENT ID: [id number] OPERATIVE REPORT [id number] FAISAL ROLON MD, SWAPNA CAST at 0842 CC: [id number] DICTATION DATE: 08/01/19925 EQUESTRIAN TRAINER: 08/01/19 [address] [facility] [address] [place] [address]
[2019-08-04 09:14] VITALS: BP 115/79
[2019-08-04 12:52] VITALS: BP 132/86
[2019-08-04 17:06] VITALS: BP 136/71
[2019-08-04 20:00] VITALS: BP 123/78
--- NOTE | 2019-08-04 20:00 | NUR ---
ALERT RESTING IN BED REPORTS GOOD PAIN RELIEF WITH MILL TENDER, MABEL WRAP DRESSING INTACT TO RIGHT FOOT, TOES PINK AND WARM, SEE SHIFT ASSESSMENT, CALL LIGHT IN REACH
[2019-08-05] VITALS: BP 120/77
[2019-08-05 04:00] VITALS: BP 136/75
[2019-08-05 05:46] LABS: HEMATOCRIT 36.7 % (42.0-54.0); HEMOGLOBIN 12.6 g/dL (13.5-17.5); MCHC 34.3 g/dL (31.0-37.0); MCV 98.9 fL (80.0-100.0); MEAN PLATELET VOLUME 10.2 fL (7.4-10.4); RBC 3.71 10x6/uL (4.20-6.10); RDW 12.9 % (11.5-14.5)
[2019-08-05 06:00] LABS: INR 1.01 (0.85-1.17); PROTIME 13.2 SECONDS (11.6-15.0)
[2019-08-05 06:18] LABS: WBC 11.5 10x3/uL (4.8-10.8)
[2019-08-05 06:35] LABS: ANION GAP 14.1 mmol/L (8-16); CALCIUM 8.5 mg/dL (8.5-10.1); CARBON DIOXIDE 25.1 mmol/L (21.0-32.0); CREATININE - SERUM 1.2 mg/dL (0.6-1.3); POTASSIUM - SERUM 4.2 mmol/L (3.5-5.1)
--- NOTE | 2019-08-05 09:39 | NUR ---
PT SITTING UP IN BED STATES ANKLE IS STILL PAINFUL, HOPEFUL TOP GO HOME ON ABX. PT STATED WAITING ON INS APPROVAL FOR HOME ABX. ANKLE IS IN SOFT CAST, PT ABLE TO WIGGLE TOES, SKIN WARM TO TOUCH, NO S/SX OF DISTRESS, CL IN REACH, CONTINUE WITH PLAN OF CARE
[2019-08-05 09:42] VITALS: BP 134/74
[2019-08-05 13:01] VITALS: BP 149/73
--- NOTE | 2019-08-05 13:38 | MORECARE ---
CASE MANAGEMENT DISCHARGE SUMMARY PATIENT: FAISAL KILLIAN UNIT: [id number] ADM DATE: 07/31/19 AGE: 49 : 68 SEX: M ROOM/BED: D.2227 AUTHOR: DENNIS,DOC PHYSICIAN: REFERRING PHYSICIAN: SWAPNA BRANHAM MD DATE OF SERVICE: 08/05/19 Discharge Plan Patient Name: FAISAL KILLIAN Facility: [facility]:[place] : 1970 Planned Disposition: Home with Home Health Anticipated Discharge Date: Discharge Date: Expected LOS: Initial Reviewer: [email or web address] Initial Review Date: 08/01/2019 Generated: 08/05/19 2:38 pm Comments DCP- Discharge Planning Updated by [email or web address]: Paola Bo on 08/01/19 1:[address] Patient Name: FAISAL KILLIAN Admission Status: Elective Accout number: [id number] Admission Date: 07-31-2019 : 1970 Admission Diagnosis: Attending: SWAPNA BRANHAM Current LOS: 1 Anticipated DC Date: Planned Disposition: Home with Home Health Primary Insurance: MEDICAID [place] PENDING Discharge Planning Comments: CM met with patient to discuss discharge planning/needs. He lives with his in a one story home. States he plans to return home with his . He states his will be able to assist with IV medications at home. I have called Ray with [facility] and he states they can take the patient as Medicaid pending. I spoke with Melinda with [facility] and Luis Angel with [employer] and they will get some smith quotes on the sensitive medications, including Vancomycin. I am awaiting Dr. Branham's signature on the wound vac order form to complete the process for the wound vac. CM will continue to follow and assist with discharge planning/needs. Assembler Wet Wash: Paola Bo DCP- Discharge Planning Updated by [email or web address]: Paola Bo on 08/01/19 11:[address] I have spoke with Karissa with [facility] an faxed for wound vac. I have faxed clinical along with sensitivities from wound cx from June to [employer] and [facility] to smith antibiotics and see if they can take a patient with Medicaid pending. CM will continue to follow and assist with discharge planning/needs. DCPIA - Discharge Planning Initial Assessment Updated by [email or web address]: Paola Betzy on 08/01/19 3:06 pm * Is the patient Alert and Oriented? Yes * How many steps to enter\exit or inside your home? 2/0 * PCP Dr[facility]ine on [facility] * [facility] * Preadmission Environment Home with Family * ADLs Independent * Equipment Cane Crutch Walker * Other Equipment Walking boot * List name and contact numbers for known caregivers / representatives who currently or will assist patient after discharge: Anurag Killian - [facility] - [phone] * Verbal permission to speak to the caregivers and representatives has been obtained from the patient. Yes * Community resources currently utilized None * Additional services required to return to the preadmission environment? Yes * Can the patient safely return to the preadmission environment? Yes * Has this patient been hospitalized within the prior 30 days at any hospital? No External Providers External Provider: [email or web address] [facility] [employer] Next Contact Date: Service Request Date: Service Type: Resolution: Reviewer: Comments: Coverage Notice Reviewer: [email or web address] - Paola Bo Notice Issued Date-Time: 08/01/2019 9:15 Notice Type: Patient Choice Letter Notice Delivered To: Patient Relationship to Patient: Self Title Closer Name: Delivery Method: HAND - Hand Delivered Eliza Days: Prior Verbal Notification: Recipient Understood Notice: Yes Recipient Signature: Yes Med Rec Note Co-signed by Attending: Coverage Notice Comment: [place] for [facility] or [place]. He states he will use whoever will accept his Medicaid pending insurance. Last DP export: 08/01/19 1:18 pm Patient Name: FAISAL KILLIAN Page [phone] at 1338 All edits/amendments must be made on the electronic document DICTATION DATE: 08/05/191337 CLINICAL CODER: LUDY 08/05/191337 RPT#: [id number] DC DATE: STATUS: ADM IN [facility] [address] [place] [address] END OF REPORT
--- NOTE | 2019-08-05 13:48 | MORECARE ---
CASE MANAGEMENT DISCHARGE SUMMARY PATIENT: FAISAL KILLIAN UNIT: [id number] ADM DATE: 07/31/19 AGE: 49 : 68 SEX: M ROOM/BED: D.2227 AUTHOR: DENNIS,DOC PHYSICIAN: REFERRING PHYSICIAN: SWAPNA BRANHAM MD DATE OF SERVICE: 08/05/19 Discharge Plan Patient Name: FAISAL KILLIAN Facility: [facility]:[place] : 1970 Planned Disposition: Home with Home Health Anticipated Discharge Date: Discharge Date: Expected LOS: Initial Reviewer: [email or web address] Initial Review Date: 08/01/2019 Generated: 08/05/19 2:47 pm Comments DCP- Discharge Planning Updated by [email or web address]: Paola Bo on 08/05/19 12:[address] Antibiotic orders faxed to [facility] and I spoke with Jonelle. I also faxed orders to [facility]. I have not received a call back from [facility] yet. Jonelle with [employer] [facility] [facility] states she will let me know if they can accept patient. CM will continue to follow and assist with discharge planning/needs. DCP- Discharge Planning Updated by [email or web address]: Paola Bo on 08/01/19 1:[address] Patient Name: FAISAL KILLIAN Admission Status: Elective Accout number: [id number] Admission Date: 07-31-2019 : 1970 Admission Diagnosis: Attending: SWAPNA BRANHAM Current LOS: 1 Anticipated DC Date: Planned Disposition: Home with Home Health Primary Insurance: MEDICAID [place] PENDING Discharge Planning Comments: CM met with patient to discuss discharge planning/needs. He lives with his in a one story home. States he plans to return home with his . He states his will be able to assist with IV medications at home. I have called Matthew with [employer] [facility] [facility] and he states they can take the patient as Medicaid pending. I spoke with Melinda with [facility] and Luis Angel with [facility] and they will get some smith quotes on the sensitive medications, including Vancomycin. I am awaiting Dr. Branham's signature on the wound vac order form to complete the process for the wound vac. CM will continue to follow and assist with discharge planning/needs. Application Development Project Manager: Paola Betzy DCP- Discharge Planning Updated by [email or web address]: Paola Bo on 08/01/19 11:[address] I have spoke with Natindia with [facility] an faxed for wound vac. I have faxed clinical along with sensitivities from wound cx from June to [facility] and [facility] to smith antibiotics and see if they can take a patient with Medicaid pending. CM will continue to follow and assist with discharge planning/needs. DCPIA - Discharge Planning Initial Assessment Updated by [email or web address]: Paola Bo on 08/01/19 3:06 pm * Is the patient Alert and Oriented? Yes * How many steps to enter\exit or inside your home? 2/0 * PCP Dr[facility] Antoine on [facility] * Pharmacy [facility] on [facility] [address] * Preadmission Environment Home with Family * ADLs Independent * Equipment Cane Crutch Walker * Other Equipment Walking boot * List name and contact numbers for known caregivers / representatives who currently or will assist patient after discharge: Anurag Killian - [facility] - [phone] * Verbal permission to speak to the caregivers and representatives has been obtained from the patient. Yes * Community resources currently utilized None * Additional services required to return to the preadmission environment? Yes * Can the patient safely return to the preadmission environment? Yes * Has this patient been hospitalized within the prior 30 days at any hospital? No Coverage Notice Reviewer: [email or web address] - Paola Betzy Notice Issued Date-Time: 08/01/2019 9:15 Notice Type: Patient Choice Letter Notice Delivered To: Patient Relationship to Patient: Self Residential Caregiver Name: Delivery Method: HAND - Hand Delivered Eliza Days: Prior Verbal Notification: Recipient Understood Notice: Yes Recipient Signature: Yes Med Rec Note Co-signed by Attending: Coverage Notice Comment: [place] for [facility] or [place]. He states he will use whoever will accept his Medicaid pending insurance. Last DP export: 08/05/19 12:38 p Patient Name: FAISAL KILLIAN Page [phone] at 1348 All edits/amendments must be made on the electronic document DICTATION DATE: 08/05/19 1348 COIL STRAPPER: LUDY 08/05/19 1348 RPT#: [id number] DC DATE: STATUS: ADM IN [facility] [address] [place] [address] END OF REPORT
--- NOTE | 2019-08-05 15:40 | NUR ---
I have reviewed this patient and I concur with the Shift Assessment completed by the Licensed Practical Nurse today this shift.
[2019-08-05 17:24] VITALS: BP 136/72
[2019-08-05 20:00] VITALS: BP 130/70
--- NOTE | 2019-08-05 20:00 | NUR ---
ALERT RESTING IN BED, DENIES PAIN OR NEEDS AT THIS TIME, MABEL WRAP DRESSING INTACT TO RIGHT FOOT, TOES PINK AND WARM, SEE SHIFT ASSESSMENT, CALL LIGHT IN REACH
[2019-08-06 04:00] VITALS: BP 125/68
[2019-08-06 07:53] LABS: INR 0.96 (0.85-1.17); PROTIME 12.8 SECONDS (11.6-15.0)
[2019-08-06 09:32] VITALS: BP 135/75
[2019-08-06 09:39] LABS: ERYTHROCYTE SEDIMENTATION RATE 14 mm/hr (0-20)
[2019-08-06] MEDS ORDERED: VANCOMYCIN 1.5 GM/NS IV (09:51)
[2019-08-06] MEDS ORDERED: PERCOCET 10-321 EAC1 PO (09:51)
--- NOTE | 2019-08-06 10:46 | MORECARE ---
CASE MANAGEMENT DISCHARGE SUMMARY PATIENT: FAISAL KILLIAN UNIT: [id number] ADM DATE: 07/31/19 AGE: 49 : [birth year] SEX: M ROOM/BED: D.2227 AUTHOR: DENNIS,DOC PHYSICIAN: REFERRING PHYSICIAN: SWAPNA BRANHAM MD DATE OF SERVICE: 08/06/19 Discharge Plan Patient Name: FAISAL KILLIAN Facility: [facility]:[place] : 1970 Planned Disposition: Home with Home Health Anticipated Discharge Date: Discharge Date: Expected LOS: Initial Reviewer: [email or web address] Initial Review Date: 08/01/2019 Generated: 08/06/19 11:45 am Comments DCP- Discharge Planning Updated by [email or web address]: Paola Bo on 08/06/19 9:[address] Ray with [facility] called and states he will speak with administration and see if [facility] can accept. I spoke with Gabriela Castaneda. She states if he is unable to get [facility], he can come to their office for weekly lab draws and still return home today. I spoke with Miriam with [facility] and faxed the increased dose of Vancomycin along with vanc level. Clinical faxed to [facility] and [facility]. [facility] will come for first teaching today. Miriam states they can do the second teaching if needed. Home today. DCP- Discharge Planning Updated by [email or web address]: Paola Bo on 08/05/19 12:[address] Antibiotic orders faxed to [facility] and I spoke with Jonelle. I also faxed orders to [facility]. I have not received a call back from [facility] yet. Jonelle with [facility] states she will let me know if they can accept patient. CM will continue to follow and assist with discharge planning/needs. DCP- Discharge Planning Updated by [email or web address]: Paola Bo on 08/01/19 1:[address] Patient Name: FAISAL KILLIAN Admission Status: Elective Accout number: [id number] Admission Date: 07-31-2019 : 1970 Admission Diagnosis: Attending: SWAPNA BRANHAM Current LOS: 1 Anticipated DC Date: Planned Disposition: Home with Home Health Primary Insurance: MEDICAID [place] PENDING Discharge Planning Comments: CM met with patient to discuss discharge planning/needs. He lives with his in a one story home. States he plans to return home with his . He states his will be able to assist with IV medications at home. I have called Matthew with [facility] and he states they can take the patient as Medicaid pending. I spoke with Melinda with [facility] and Luis Angel with [facility] and they will get some smith quotes on the sensitive medications, including Vancomycin. I am awaiting Dr. Branham's signature on the wound vac order form to complete the process for the wound vac. CM will continue to follow and assist with discharge planning/needs. Item Processor: Paola Bo DCP- Discharge Planning Updated by [email or web address]: Paola Bo on 08/01/19 11:[address] I have spoke with Karissa with [facility] an faxed for wound vac. I have faxed clinical along with sensitivities from wound cx from June to [facility] and [facility] to smith antibiotics and see if they can take a patient with Medicaid pending. CM will continue to follow and assist with discharge planning/needs. DCPIA - Discharge Planning Initial Assessment Updated by [email or web address]: Paola Bo on 08/01/19 3:06 pm * Is the patient Alert and Oriented? Yes * How many steps to enter\exit or inside your home? 2/0 * PCP Dr. Antoine on [facility] * Pharmacy [facility] [address] * Preadmission Environment Home with Family * ADLs Independent * Equipment Cane Crutch Walker * Other Equipment Walking boot * List name and contact numbers for known caregivers / representatives who currently or will assist patient after discharge: Anurag Killian - [facility] - [phone] * Verbal permission to speak to the caregivers and representatives has been obtained from the patient. Yes * Community resources currently utilized None * Additional services required to return to the preadmission environment? Yes * Can the patient safely return to the preadmission environment? Yes * Has this patient been hospitalized within the prior 30 days at any hospital? No Coverage Notice Reviewer: [email or web address] - Paola Bo Notice Issued Date-Time: 08/01/2019 9:15 Notice Type: Patient Choice Letter Notice Delivered To: Patient Relationship to Patient: Self Administrator Pesticide Name: Delivery Method: HAND - Hand Delivered Eliza Days: Prior Verbal Notification: Recipient Understood Notice: Yes Recipient Signature: Yes Med Rec Note Co-signed by Attending: Coverage Notice Comment: [place] for [facility] or [facility]. He states he will use whoever will accept his Medicaid pending insurance. Last DP export: 08/05/19 12:48 p Patient Name: FAISAL KILLIAN Page [id number] at 1046 All edits/amendments must be made on the electronic document DICTATION DATE: 08/06/19 1045 MOTION PICTURE PROJECTIONIST APPRENTICE: LUDY 08/06/19 1045 RPT#: [id number] DC DATE: STATUS: ADM IN [facility] [address] [place] [address] END OF REPORT
[2019-08-06 12:40] VITALS: BP 128/90
--- NOTE | 2019-08-06 14:15 | MORECARE ---
CASE MANAGEMENT DISCHARGE SUMMARY PATIENT: FAISAL KILLIAN UNIT: [id number] ADM DATE: 07/31/19 AGE: 49 : [birth year] SEX: M ROOM/BED: D.2227 AUTHOR: DENNIS,DOC PHYSICIAN: REFERRING PHYSICIAN: SWAPNA BRANHAM MD DATE OF SERVICE: 08/06/19 Discharge Plan Patient Name: FAISAL KILLIAN Facility: [facility]:[place] : 1970 Planned Disposition: Home with Home Health Anticipated Discharge Date: Discharge Date: Expected LOS: Initial Reviewer: [email or web address] Initial Review Date: 08/01/2019 Generated: 08/06/19 3:15 pm Comments DCP- Discharge Planning Updated by [email or web address]: Paola Bo on 08/06/19 1:[address] Maame with [facility] called and states they will accept patient for 5-6 visits, then will set him up for weekly lab draws for Dr. Branham to follow. I have notified Gabriela Castaneda APN. I informed the patient. Patient states will be here at 3PM when [facility] is here for instruction on IV antibiotic. I informed him that if he was not comfortable with his PM dose at home, to get his PM dose of Vancomycin prior to discharging today. [facility] will teach on am dose tomorrow, he voiced understanding. Home today with [facility] and [facility] infusion company. DCP- Discharge Planning Updated by [email or web address]: Paola Bo on 08/06/19 9:[address] Ray with [facility] called and states he will speak with administration and see if [facility] can accept. I spoke with Gabriela Castaneda. She states if he is unable to get [facility], he can come to their office for weekly lab draws and still return home today. I spoke with Miriam with [facility] pharmacy and faxed the increased dose of Vancomycin along with vanc level. Clinical faxed to [facility] and [facility]. [facility] will come for first teaching today. Miriam states they can do the second teaching if needed. Home today. DCP- Discharge Planning Updated by [email or web address]: Paola Bo on 08/05/19 12:[address] Antibiotic orders faxed to [facility] and I spoke with Jonelle. I also faxed orders to [facility]. I have not received a call back from [facility] yet. Jonelle with [facility] states she will let me know if they can accept patient. CM will continue to follow and assist with discharge planning/needs. DCP- Discharge Planning Updated by [email or web address]: Paola Bo on 08/01/19 1:[address] Patient Name: FAISAL KILLIAN Admission Status: Elective Accout number: [id number] Admission Date: 07-31-2019 : 1970 Admission Diagnosis: Attending: SWAPNA BRANHAM Current LOS: 1 Anticipated DC Date: Planned Disposition: Home with Home Health Primary Insurance: MEDICAID [place] PENDING Discharge Planning Comments: CM met with patient to discuss discharge planning/needs. He lives with his in a one story home. States he plans to return home with his . He states his will be able to assist with IV medications at home. I have called Ray with [facility] and he states they can take the patient as Medicaid pending. I spoke with Melinda with [facility] and Luis Angel with [facility] and they will get some smith quotes on the sensitive medications, including Vancomycin. I am awaiting Dr. Branham's signature on the wound vac order form to complete the process for the wound vac. CM will continue to follow and assist with discharge planning/needs. Senior Recruiter: Paola Bo DCP- Discharge Planning Updated by [email or web address]: Paola Bo on 08/01/19 11:[address] I have spoke with Karissa with [facility] an faxed for wound vac. I have faxed clinical along with sensitivities from wound cx from June to [facility] and [facility] to smith antibiotics and see if they can take a patient with Medicaid pending. CM will continue to follow and assist with discharge planning/needs. DCPIA - Discharge Planning Initial Assessment Updated by [email or web address]: Paola Bo on 08/01/19 3:06 pm * Is the patient Alert and Oriented? Yes * How many steps to enter\exit or inside your home? 2/0 * PCP Dr. Antoine on [facility] * Pharmacy [facility] on [facility] [address] * Preadmission Environment Home with Family * ADLs Independent * Equipment Cane Crutch Walker * Other Equipment Walking boot * List name and contact numbers for known caregivers / representatives who currently or will assist patient after discharge: Anurag Killian - [facility] - [phone] * Verbal permission to speak to the caregivers and representatives has been obtained from the patient. Yes * Community resources currently utilized None * Additional services required to return to the preadmission environment? Yes * Can the patient safely return to the preadmission environment? Yes * Has this patient been hospitalized within the prior 30 days at any hospital? No Coverage Notice Reviewer: [email or web address] Paul Bo Notice Issued Date-Time: 08/01/2019 9:15 Notice Type: Patient Choice Letter Notice Delivered To: Patient Relationship to Patient: Self Studio Designer Name: Delivery Method: HAND - Hand Delivered Eliza Days: Prior Verbal Notification: Recipient Understood Notice: Yes Recipient Signature: Yes Med Rec Note Co-signed by Attending: Coverage Notice Comment: [place] for [facility] or [facility]. He states he will use whoever will accept his Medicaid pending insurance. Last DP export: 08/06/19 9:46 a Patient Name: FAISAL KILLIAN Page [phone] at 1415 All edits/amendments must be made on the electronic document DICTATION DATE: 08/06/191414 ICHTHYOLOGIST: LUDY 08/06/191414 RPT#: [id number] DC DATE: STATUS: ADM IN [facility] [address] [place] [address] END OF REPORT
--- NOTE | 2019-08-06 15:34 | NUR ---
I have reviewed this patient and I concur with the Shift Assessment completed by the Licensed Practical Nurse today this shift.
--- NOTE | 2019-08-08 08:31 | MORECARE ---
CASE MANAGEMENT DISCHARGE SUMMARY PATIENT: FAISAL KILLIAN UNIT: [id number] ADM DATE: 07/31/19 AGE: 49 : [birth year] SEX: M ROOM/BED: D.2227 AUTHOR: DENNIS,DOC PHYSICIAN: REFERRING PHYSICIAN: SWAPNA BRANHAM MD DATE OF SERVICE: 08/08/19 Discharge Plan Patient Name: FAISAL KILLIAN Facility: [facility]:[place] : 1970 Planned Disposition: Home with Home Health Anticipated Discharge Date: Discharge Date: 08/06/2019 Expected LOS: 0 Initial Reviewer: [email or web address] Initial Review Date: 08/01/2019 Generated: 08/08/19 9:31 am DCP- Discharge Planning Updated by [email or web address]: Paola Bo on 08/06/19 1:[address] Maame with [facility] called and states they will accept patient for 5-6 visits, then will set him up for weekly lab draws for Dr. Branham to follow. I have notified Gabriela Castaneda APN. I informed the patient. Patient states will be here at 3PM when [facility] is here for instruction on IV antibiotic. I informed him that if he was not comfortable with his PM dose at home, to get his PM dose of Vancomycin prior to discharging today. [facility] will teach on am dose tomorrow, he voiced understanding. Home today with [email or web address] and [facility] infusion company. DCP- Discharge Planning Updated by [email or web address]: Paola Bo on 08/06/19 9:[address] Ray with [facility] called and states he will speak with administration and see if [facility] can accept. I spoke with Gabriela Castaneda. She states if he is unable to get [facility], he can come to their office for weekly lab draws and still return home today. I spoke with Miriam with [facility] and faxed the increased dose of Vancomycin along with vanc level. Clinical faxed to [email or web address] and [facility]. [facility] will come for first teaching today. Miriam states they can do the second teaching if needed. Home today. DCP- Discharge Planning Updated by [email or web address]: Paola Bo on 08/05/19 12:[address] Antibiotic orders faxed to [facility] and I spoke with Jonelle. I also faxed orders to [facility]. I have not received a call back from [facility] yet. Jonelle with [facility] states she will let me know if they can accept patient. CM will continue to follow and assist with discharge planning/needs. DCP- Discharge Planning Updated by [email or web address]: Paola Bo on 08/01/19 1:[address] Patient Name: FAISAL KILLIAN Admission Status: Elective Accout number: [id number] Admission Date: 07-31-2019 : 1970 Admission Diagnosis: Attending: SWAPNA BRANHAM Current LOS: 1 Anticipated DC Date: Planned Disposition: Home with Home Health Primary Insurance: MEDICAID [place] PENDING Discharge Planning Comments: CM met with patient to discuss discharge planning/needs. He lives with his in a one story home. States he plans to return home with his . He states his will be able to assist with IV medications at home. I have called Ray with [facility] and he states they can take the patient as Medicaid pending. I spoke with Melinda with [facility] and Luis Angel with [facility] and they will get some smith quotes on the sensitive medications, including Vancomycin. I am awaiting Dr. Branham's signature on the wound vac order form to complete the process for the wound vac. CM will continue to follow and assist with discharge planning/needs. Stove Carriage Operator: Paola Bo DCP- Discharge Planning Updated by [email or web address]: Paola Bo on 08/01/19 11:[address] I have spoke with Karissa with [facility] an faxed for wound vac. I have faxed clinical along with sensitivities from wound cx from June to [facility] and [facility] infusion company to smith antibiotics and see if they can take a patient with Medicaid pending. CM will continue to follow and assist with discharge planning/needs. DCPIA - Discharge Planning Initial Assessment Updated by [email or web address]: Paola Bo on 08/01/19 3:06 pm * Is the patient Alert and Oriented? Yes * How many steps to enter\exit or inside your home? 2/0 * PCP Dr[facility] Antoine on [facility] * Pharmacy [facility] on [facility] [address] * Preadmission Environment Home with Family * ADLs Independent * Equipment Cane Crutch Walker * Other Equipment Walking boot * List name and contact numbers for known caregivers / representatives who currently or will assist patient after discharge: Anurag Killian - [facility] - [phone] * Verbal permission to speak to the caregivers and representatives has been obtained from the patient. Yes * Community resources currently utilized None * Additional services required to return to the preadmission environment? Yes * Can the patient safely return to the preadmission environment? Yes * Has this patient been hospitalized within the prior 30 days at any hospital? No Coverage Notice Reviewer: [email or web address] Paul Bo Notice Issued Date-Time: 08/01/2019 9:15 Notice Type: Patient Choice Letter Notice Delivered To: Patient Relationship to Patient: Self Dental Laboratory Worker Name: Delivery Method: HAND - Hand Delivered Eliza Days: Prior Verbal Notification: Recipient Understood Notice: Yes Recipient Signature: Yes Med Rec Note Co-signed by Attending: Coverage Notice Comment: [place] for [facility] or [facility]. He states he will use whoever will accept his Medicaid pending insurance. Last DP export: 08/06/19 1:15 p Patient Name: FAISAL KILLIAN Page [id number] at 0831 All edits/amendments must be made on the electronic document DICTATION DATE: 08/08/19830 DYE AUTOMATION OPERATOR: LUDY 08/08/19830 RPT#: [id number] DC DATE:08/06/19 STATUS: DIS IN [facility] [address] [place] [address] END OF REPORT
--- NOTE | 2019-08-09 10:18 | OP ---
PATIENT NAME: FAISAL ROLON MEDICAL RECORD: [id number] :[birth year] LOCATION:D.MS [id number] ADMISSION DATE:07/31/19 SURGEON: SWAPNA BRANHAM MD DATE OF OPERATION: 08/04/2019 PREOPERATIVE DIAGNOSIS: Continued open wound of the right ankle. POSTOPERATIVE DIAGNOSIS: Continued open wound of the right ankle. PROCEDURE: I&D with closure of right open ankle wound. SURGEON: Swapna Branham MD INTRAOPERATIVE COMPLICATIONS: None. SUMMARY OF PATHOLOGIC FINDINGS: What appeared to be infectious material in the past had cleared up dramatically given the appropriate bacterial identification and antibiotic coverage. Therefore, I did a further I&D with a deep thick capsular coverage. OPERATIVE SUMMARY IN DETAIL: After obtaining the appropriate preoperative orthopedic surgery consent as well as anesthetic consultation, evaluation and clearance, the patient was brought to the operating room and placed on the operating table in supine position. After adequate general laryngeal mask airway anesthesia was administered, the patient's right lower extremity was prepped and draped in routine sterile fashion. Debridement was again carried out to include skin, subcutaneous tissue, portions of fat, fascia, muscle, and bone. Pulse lavage was then followed by that, although this did appear to be much more clean than prior surgery. At this point, a heavy #1 Prolene was utilized to reapproximate the ankle using a very thick layer to try and get an adequate wound seal. Having completed complete closure, an L&U splint was applied. The patient was then awakened and taken to recovery room in stable condition. All final needle and sponge counts were correct. TRANSINT:[id number] Voice Confirmation ID: [id number] DOCUMENT ID: [id number] 08/08/2019 Edited to correct date of operation, dmmerari. SWAPNA BRANHAM MD at 1018 CC: [id number] DICTATION DATE: 08/08/19 0556 CLIPPER COUNTERS: 08/08/19 0824 DIS IN 08/06/19 [place] [id number] [place] [address]
== END 2019-08-06 16:48 | disposition home health service (06) | DRG 857 ==
LOC: D.OPS 11:44 → D.MS 15:29 → D.OPS 15:30 → D.MS 15:31
PROVIDERS: Anesthesiology; ADMIT Orthopaedic Surgery; ATTEND Orthopaedic Surgery
PROC: 0SBF0ZZ Excision of Right Ankle Joint, Open Approach (ICD-10-PCS; principal; 2019-07-31 14:15)
PROC: 0SBF0ZZ Excision of Right Ankle Joint, Open Approach (ICD-10-PCS; 2019-08-04)
PROC: 05HY33Z Insertion of Infusion Device into Upper Vein, Percutaneous Approach (ICD-10-PCS; 2019-08-05)
DX: T81.42XA Infection following a procedure, deep incisional surgical site, initial encounter (principal); M00.9 Pyogenic arthritis, unspecified; M86.161 Other acute osteomyelitis, right tibia and fibula; I10 Essential (primary) hypertension; B95.7 Other staphylococcus as the cause of diseases classified elsewhere

== ENCOUNTER 2019-08-08 10:16 | Outpatient (CLI) | payer SELFPAY ==
[2019-08-01 13:20] VITALS: BMI 26.9
[~2019-08-08 10:16] MED LIST changes: +VANCOMYCIN 1.5 GM/NS IV
== END 2019-08-08 11:25 | disposition home or self-care (01) ==
LOC: D.OPS 10:16
PROVIDERS: ATTEND Clinical Nurse Specialist Family Health
DX: M86.9 Osteomyelitis, unspecified (principal)

== ENCOUNTER → 2019-08-11 13:39 | Outpatient (CLI) | payer SELFPAY ==
[2019-08-01 13:20] VITALS: BMI 26.9
[2019-08-11 14:00] LABS: BASOPHILS 0.3 % (0-2); EOSINOPHILS 1.5 % (0-7); HEMATOCRIT 37.8 % (42.0-54.0); HEMOGLOBIN 12.7 g/dL (13.5-17.5); IMMATURE GRANULOCYTES 1.2 % (0-5); LYMPHOCYTES 17.3 % (15-50); MCH 34.3 pg (26.0-34.0); MCHC 33.6 g/dL (31.0-37.0); MCV 102.2 fL (80.0-100.0); MEAN PLATELET VOLUME 10.3 fL (7.4-10.4); MONOCYTES 12.3 % (2-11); NEUTROPHILS 67.4 % (40-80); RDW 13.1 % (11.5-14.5); WBC 6.8 10x3/uL (4.8-10.8)
[2019-08-11 14:04] LABS: CREATININE - SERUM 0.8 mg/dL (0.6-1.3); PLATELET COUNT 156 10x3/uL (130-400); UREA NITROGEN 9 mg/dL (7-18)
[2019-08-11 14:07] LABS: C-REACTIVE PROTEIN < 0.2 mg/dL (0.0-0.9)
[2019-08-11 15:14] LABS: ERYTHROCYTE SEDIMENTATION RATE 23 mm/hr (0-20)
== END | disposition home or self-care (01) ==
LOC: D.LABREF 13:39
PROVIDERS: ATTEND Orthopaedic Surgery
DX: T81.41XA Infection following a procedure, superficial incisional surgical site, initial encounter (principal)

== ENCOUNTER → 2019-08-18 11:16 | Outpatient (CLI) | payer SELFPAY ==
[2019-08-01 13:20] VITALS: BMI 26.9
[2019-08-18 11:53] LABS: C-REACTIVE PROTEIN 5.8 mg/dL (0.0-0.9); CREATININE - SERUM 1.3 mg/dL (0.6-1.3); VANCOMYCIN - TROUGH 20.5 ug/mL (10.0-20.0)
[2019-08-18 12:38] LABS: ERYTHROCYTE SEDIMENTATION RATE 46 mm/hr (0-20)
[2019-08-18 12:39] LABS: HEMATOCRIT 36.5 % (42.0-54.0); HEMOGLOBIN 12.4 g/dL (13.5-17.5); LYMPHOCYTES 7.1 % (15-50); MCH 34.1 pg (26.0-34.0); MCV 100.3 fL (80.0-100.0); MEAN PLATELET VOLUME 10.3 fL (7.4-10.4); RBC 3.64 10x6/uL (4.20-6.10); WBC 10.2 10x3/uL (4.8-10.8)
[2019-08-18 12:45] LABS: PLATELET COUNT 190 10x3/uL (130-400)
== END | disposition home or self-care (01) ==
LOC: D.LABREF 11:16
PROVIDERS: ATTEND Orthopaedic Surgery
DX: T81.41XA Infection following a procedure, superficial incisional surgical site, initial encounter (principal)

== ENCOUNTER → 2019-08-25 10:54 | Outpatient (CLI) | payer MEDICAID ==
[2019-08-01 13:20] VITALS: BMI 26.9
[2019-08-25 11:31] LABS: C-REACTIVE PROTEIN 2.3 mg/dL (0.0-0.9); CREATININE - SERUM 1.6 mg/dL (0.6-1.3); VANCOMYCIN - TROUGH 30.3 ug/mL (10.0-20.0)
[2019-08-25 11:40] LABS: BASOPHILS 0.2 % (0-2); EOSINOPHILS 2.9 % (0-7); HEMATOCRIT 37.8 % (42.0-54.0); HEMOGLOBIN 12.3 g/dL (13.5-17.5); IMMATURE GRANULOCYTES 0.5 % (0-5); LYMPHOCYTES 14.9 % (15-50); MCH 33.2 pg (26.0-34.0); MCHC 32.5 g/dL (31.0-37.0); MCV 101.9 fL (80.0-100.0); MEAN PLATELET VOLUME 9.6 fL (7.4-10.4); MONOCYTES 17.6 % (2-11); NEUTROPHILS 63.9 % (40-80); RBC 3.71 10x6/uL (4.20-6.10); WBC 5.8 10x3/uL (4.8-10.8)
[2019-08-25 11:41] LABS: PLATELET COUNT 253 10x3/uL (130-400)
[2019-08-25 13:01] LABS: ERYTHROCYTE SEDIMENTATION RATE 66 mm/hr (0-20)
== END | disposition home or self-care (01) ==
LOC: D.LABREF 10:54
PROVIDERS: ATTEND Orthopaedic Surgery
DX: M86.8X7 Other osteomyelitis, ankle and foot (principal)

== ENCOUNTER → 2019-08-27 18:22 | Outpatient (CLI) | payer MEDICAID ==
[2019-08-01 13:20] VITALS: BMI 26.9
[2019-08-27 19:15] LABS: BASOPHILS 0.2 % (0-2); EOSINOPHILS 1.8 % (0-7); HEMATOCRIT 44.2 % (42.0-54.0); HEMOGLOBIN 14.2 g/dL (13.5-17.5); IMMATURE GRANULOCYTES 0.5 % (0-5); LYMPHOCYTES 11.7 % (15-50); MCH 33.3 pg (26.0-34.0); MCHC 32.1 g/dL (31.0-37.0); MCV 103.8 fL (80.0-100.0); MEAN PLATELET VOLUME 9.8 fL (7.4-10.4); MONOCYTES 14.8 % (2-11); RBC 4.26 10x6/uL (4.20-6.10); WBC 10.5 10x3/uL (4.8-10.8)
[2019-08-27 19:40] LABS: PLATELET COUNT 364 10x3/uL (130-400)
[2019-08-27 19:52] LABS: ANION GAP 17.3 mmol/L (8-16); C-REACTIVE PROTEIN 1.6 mg/dL (0.0-0.9); CALCIUM 8.7 mg/dL (8.5-10.1); CARBON DIOXIDE 23.4 mmol/L (21.0-32.0); CREATININE - SERUM 1.9 mg/dL (0.6-1.3); POTASSIUM - SERUM 4.7 mmol/L (3.5-5.1); VANCOMYCIN - TROUGH 23.8 ug/mL (10.0-20.0)
[2019-08-27 20:33] LABS: ERYTHROCYTE SEDIMENTATION RATE 8 mm/hr (0-20)
== END | disposition home or self-care (01) ==
LOC: D.LABREF 18:22
PROVIDERS: ATTEND Clinical Nurse Specialist Family Health
DX: M86.9 Osteomyelitis, unspecified (principal)

== ENCOUNTER → 2019-08-28 15:27 | Outpatient (CLI) | payer MEDICAID ==
[2019-08-01 13:20] VITALS: BMI 26.9
[2019-08-28 15:46] LABS: VANCOMYCIN - TROUGH 14.8 ug/mL (10.0-20.0)
== END | disposition home or self-care (01) ==
LOC: D.LABREF 15:27
PROVIDERS: ATTEND Orthopaedic Surgery
DX: M86.8X7 Other osteomyelitis, ankle and foot (principal)

== ENCOUNTER → 2019-09-01 10:25 | Outpatient (CLI) | payer MEDICAID ==
[2019-08-01 13:20] VITALS: BMI 26.9
[2019-09-01 10:36] LABS: BASOPHILS 0.4 % (0-2); EOSINOPHILS 2.3 % (0-7); HEMATOCRIT 39.3 % (42.0-54.0); IMMATURE GRANULOCYTES 0.7 % (0-5); LYMPHOCYTES 15.3 % (15-50); MCH 33.5 pg (26.0-34.0); MCHC 33.1 g/dL (31.0-37.0); MCV 101.3 fL (80.0-100.0); MEAN PLATELET VOLUME 9.8 fL (7.4-10.4); NEUTROPHILS 72.3 % (40-80); RBC 3.88 10x6/uL (4.20-6.10); RDW 12.6 % (11.5-14.5); WBC 5.7 10x3/uL (4.8-10.8)
[2019-09-01 10:52] LABS: C-REACTIVE PROTEIN < 0.2 mg/dL (0.0-0.9); PLATELET COUNT 214 10x3/uL (130-400); UREA NITROGEN 15 mg/dL (7-18)
[2019-09-01 11:37] LABS: ERYTHROCYTE SEDIMENTATION RATE 24 mm/hr (0-20)
== END | disposition home or self-care (01) ==
LOC: D.LABREF 10:25
PROVIDERS: ATTEND Orthopaedic Surgery
DX: M86.8X7 Other osteomyelitis, ankle and foot (principal)

== ENCOUNTER → 2019-09-05 14:08 | Outpatient (CLI) | payer MEDICAID ==
[2019-08-01 13:20] VITALS: BMI 26.9
[2019-09-05 16:12] LABS: BILIRUBIN NEGATIVE (NEGATIVE); GLUCOSE NEGATIVE (NEGATIVE); KETONE NEGATIVE (NEGATIVE); NITRITE NEGATIVE (NEGATIVE); SPECIFIC GRAVITY 1.015 (1.005-1.020); UROBILINOGEN NORMAL (NORMAL)
== END | disposition home or self-care (01) ==
LOC: D.LABREF 14:08
PROVIDERS: ATTEND Orthopaedic Surgery
DX: N39.0 Urinary tract infection, site not specified (principal)

== ENCOUNTER → 2019-09-08 16:48 | Outpatient (CLI) | payer MEDICAID ==
[2019-08-01 13:20] VITALS: BMI 26.9
[2019-09-08 17:00] LABS: BASOPHILS 0.4 % (0-2); EOSINOPHILS 2.3 % (0-7); HEMATOCRIT 39.3 % (42.0-54.0); HEMOGLOBIN 13.1 g/dL (13.5-17.5); IMMATURE GRANULOCYTES 0.6 % (0-5); LYMPHOCYTES 17.1 % (15-50); MCH 33.2 pg (26.0-34.0); MCHC 33.3 g/dL (31.0-37.0); MCV 99.7 fL (80.0-100.0); MEAN PLATELET VOLUME 10.3 fL (7.4-10.4); MONOCYTES 10.8 % (2-11); NEUTROPHILS 68.8 % (40-80); PLATELET COUNT 206 10x3/uL (130-400); RBC 3.94 10x6/uL (4.20-6.10); RDW 12.6 % (11.5-14.5); WBC 7.2 10x3/uL (4.8-10.8)
[2019-09-08 17:06] LABS: C-REACTIVE PROTEIN 0.2 mg/dL (0.0-0.9); CREATININE - SERUM 1.3 mg/dL (0.6-1.3)
[2019-09-08 18:33] LABS: ERYTHROCYTE SEDIMENTATION RATE 12 mm/hr (0-20)
== END | disposition home or self-care (01) ==
LOC: D.LABREF 16:48
PROVIDERS: ATTEND Orthopaedic Surgery
DX: M86.8X7 Other osteomyelitis, ankle and foot (principal)

== ENCOUNTER → 2019-10-07 16:07 | Outpatient (CLI) | payer MEDICAID ==
[2019-08-01 13:20] VITALS: BMI 26.9
[2019-10-07 16:47] LABS: BASOPHILS 0 % (0-2); EOSINOPHILS 0 % (0-7); HEMATOCRIT 47.2 % (42.0-54.0); HEMOGLOBIN 15.5 g/dL (13.5-17.5); IMMATURE GRANULOCYTES 0.3 % (0-5); LYMPHOCYTES 5.5 % (15-50); MCH 33.5 pg (26.0-34.0); MCHC 32.8 g/dL (31.0-37.0); MCV 101.9 fL (80.0-100.0); MEAN PLATELET VOLUME 9.5 fL (7.4-10.4); MONOCYTES 6.3 % (2-11); NEUTROPHILS 87.9 % (40-80); RBC 4.63 10x6/uL (4.20-6.10); RDW 13.7 % (11.5-14.5); WBC 7.7 10x3/uL (4.8-10.8)
[2019-10-07 16:57] LABS: INR 1.06 (0.85-1.17); PROTIME 13.7 SECONDS (11.6-15.0)
[2019-10-07 17:02] LABS: C-REACTIVE PROTEIN 0.4 mg/dL (0.0-0.9); CALC OSMOLALITY 276 mosm/kg (275-300); CALCIUM 8.7 mg/dL (8.5-10.1); CARBON DIOXIDE 22.2 mmol/L (21.0-32.0); CHLORIDE - SERUM 103 mmol/L (98-107); POTASSIUM - SERUM 4.7 mmol/L (3.5-5.1); SODIUM 136 mmol/L (136-145); UREA NITROGEN 11 mg/dL (7-18); eGFR NON AFRICAN AMERICAN 84 mL/min (90-120)
[2019-10-07 17:03] LABS: GLUCOSE 206 mg/dL (74-106)
[2019-10-07 17:09] LABS: PLATELET COUNT 258 10x3/uL (130-400)
[2019-10-07 17:48] LABS: ERYTHROCYTE SEDIMENTATION RATE 7 mm/hr (0-20)
== END | disposition home or self-care (01) ==
LOC: D.US 16:07
PROVIDERS: ATTEND Clinical Nurse Specialist Family Health
DX: R22.31 Localized swelling, mass and lump, right upper limb (principal); Z79.01 Long term (current) use of anticoagulants; M25.571 Pain in right ankle and joints of right foot

== ENCOUNTER 2019-10-07 19:45 | Inpatient (IN) | payer MEDICAID ==
[~2019-10-07] VITALS: Ht 188 cm; Wt 97.7 kg
[2019-10-07 23:19] VITALS: BP 106/68; BMI 27.6
[2019-10-08 04:00] VITALS: BP 111/68
--- NOTE | 2019-10-08 08:15 | NUR ---
HIS RIGHT ARM IS RED AND WARM TO THE TOUCH. THE RIGHT ANKLE LOOKS LIKE IT IS HEELING, BUT HE SAIDS "IT HURTS".
[2019-10-08 09:02] VITALS: Ht 188 cm; Wt 97.7 kg
[2019-10-08 09:53] VITALS: BP 117/73
[2019-10-08 10:23] LABS: BASOPHILS 0.3 % (0-2); EOSINOPHILS 1.3 % (0-7); HEMATOCRIT 44.6 % (42.0-54.0); HEMOGLOBIN 14.4 g/dL (13.5-17.5); IMMATURE GRANULOCYTES 0.5 % (0-5); MCH 33.2 pg (26.0-34.0); MCHC 32.3 g/dL (31.0-37.0); MCV 102.8 fL (80.0-100.0); MEAN PLATELET VOLUME 9.5 fL (7.4-10.4); MONOCYTES 14.7 % (2-11); NEUTROPHILS 58.2 % (40-80); PLATELET COUNT 225 10x3/uL (130-400); RBC 4.34 10x6/uL (4.20-6.10); RDW 13.6 % (11.5-14.5); WBC 7.5 10x3/uL (4.8-10.8)
[2019-10-08 10:38] LABS: INR 1.12 (0.85-1.17); PROTIME 14.3 SECONDS (11.6-15.0)
[2019-10-08 10:45] LABS: ALBUMIN 3.1 g/dL (3.4-5.0); ALKALINE PHOSPHATASE 125 U/L (30-120); ALT (SGPT) 11 U/L (10-68); BILIRUBIN - TOTAL 0.22 mg/dL (0.2-1.3); CALC OSMOLALITY 273 mosm/kg (275-300); CALCIUM 7.9 mg/dL (8.5-10.1); CHLORIDE - SERUM 107 mmol/L (98-107); CREATININE - SERUM 0.9 mg/dL (0.6-1.3); GLUCOSE 115 mg/dL (74-106); POTASSIUM - SERUM 3.8 mmol/L (3.5-5.1); PROTEIN - SERUM 5.8 g/dL (6.4-8.2); SODIUM 137 mmol/L (136-145); UREA NITROGEN 9 mg/dL (7-18); eGFR NON AFRICAN AMERICAN > 90 mL/min (90-120)
[2019-10-08 13:21] VITALS: BP 105/57
[2019-10-08 16:46] VITALS: BP 113/65
--- NOTE | 2019-10-08 21:15 | NUR ---
A&0 X4. AMBULATES INDEPENDENTLY. REPORTS PAIN OF 6 /10 TO RUE. REDNESS AND SWELLING NOTED. ALSO STATES HE TAKES SLEEPING MEDIICATION AT HOME AND REQUESTS SOMETHING TO HELP HIM SLEEP LATER. CRAIG RAMIREZ NOTIFIED AND ORDERS ENTERED PER VERBAL ORDER.
[2019-10-09] VITALS: BP 114/67
[2019-10-09 04:00] VITALS: BP 160/64
[2019-10-09 04:23] LABS: BASOPHILS 0.4 % (0-2); EOSINOPHILS 2.8 % (0-7); HEMATOCRIT 43.8 % (42.0-54.0); HEMOGLOBIN 14.4 g/dL (13.5-17.5); IMMATURE GRANULOCYTES 0.4 % (0-5); LYMPHOCYTES 29.2 % (15-50); MCH 33.3 pg (26.0-34.0); MCHC 32.9 g/dL (31.0-37.0); MCV 101.2 fL (80.0-100.0); MEAN PLATELET VOLUME 9.6 fL (7.4-10.4); MONOCYTES 13.4 % (2-11); NEUTROPHILS 53.8 % (40-80); PLATELET COUNT 210 10x3/uL (130-400); RBC 4.33 10x6/uL (4.20-6.10); RDW 13.2 % (11.5-14.5)
[2019-10-09 04:33] LABS: WBC 4.7 10x3/uL (4.8-10.8)
[2019-10-09 04:40] LABS: ALKALINE PHOSPHATASE 131 U/L (30-120); ALT (SGPT) 16 U/L (10-68); BILIRUBIN - TOTAL 0.26 mg/dL (0.2-1.3); CALC OSMOLALITY 271 mosm/kg (275-300); CALCIUM 7.9 mg/dL (8.5-10.1); CARBON DIOXIDE 25.7 mmol/L (21.0-32.0); CHLORIDE - SERUM 104 mmol/L (98-107); CREATININE - SERUM 0.9 mg/dL (0.6-1.3); GLUCOSE 137 mg/dL (74-106); POTASSIUM - SERUM 3.8 mmol/L (3.5-5.1); PROTEIN - SERUM 5.9 g/dL (6.4-8.2); SODIUM 136 mmol/L (136-145); UREA NITROGEN 7 mg/dL (7-18); eGFR NON AFRICAN AMERICAN > 90 mL/min (90-120)
[2019-10-09 04:54] LABS: INR 1.12 (0.85-1.17); PROTIME 14.3 SECONDS (11.6-15.0)
--- NOTE | 2019-10-09 06:55 | NUR ---
I have reviewed this patient and I concur with the Shift Assessment completed by the Licensed Practical Nurse today this shift.
--- NOTE | 2019-10-09 08:00 | NUR ---
HE IS AWAKE, THIS RIGHT ARM HAS A REDNESS AREA, NO CHANGE FROM YESTERDAY.
[2019-10-09 08:45] VITALS: BP 109/67
[2019-10-09 12:12] VITALS: BP 114/56
[2019-10-09 17:27] VITALS: BP 122/76
[2019-10-09 20:00] VITALS: BP 100/50
--- NOTE | 2019-10-09 20:00 | NUR ---
PATIENT RESTING IN BED WATCHING TV. NO S/S OF ACUTE DISTRESS. PATIENT C/O PAIN IN HIS ARM AND LEG (WHERE THE BLOOD CLOTS ARE) AND PERCOCET WAS GIVEN. PATIENT HAS RIGHT FOREARM IV WITH 1/2 NORMAL SALINE @ 50 ML/HR. IV IS PATENT WITHOUT REDNESS, SWELLING, OR TENDERNESS. CALL LIGHT WITHIN REACH. WILL CONTINUE TO MONITOR.
[2019-10-10] VITALS: BP 90/57
--- NOTE | 2019-10-10 02:57 | NUR ---
I have reviewed this patient and I concur with the Shift Assessment completed by the Licensed Practical Nurse today this shift.
[2019-10-10 04:00] VITALS: BP 99/60
[2019-10-10 05:49] LABS: BASOPHILS 0.4 % (0-2); EOSINOPHILS 2.9 % (0-7); HEMOGLOBIN 14.9 g/dL (13.5-17.5); IMMATURE GRANULOCYTES 0.5 % (0-5); LYMPHOCYTES 22.4 % (15-50); MCHC 33.1 g/dL (31.0-37.0); MCV 99.6 fL (80.0-100.0); MEAN PLATELET VOLUME 9.6 fL (7.4-10.4); MONOCYTES 15.2 % (2-11); NEUTROPHILS 58.6 % (40-80); PLATELET COUNT 222 10x3/uL (130-400); RBC 4.52 10x6/uL (4.20-6.10); RDW 12.9 % (11.5-14.5); WBC 5.5 10x3/uL (4.8-10.8)
[2019-10-10 06:08] LABS: INR 0.99 (0.85-1.17)
[2019-10-10 06:10] LABS: ALBUMIN 3.1 g/dL (3.4-5.0); ALKALINE PHOSPHATASE 121 U/L (30-120); BILIRUBIN - TOTAL 0.53 mg/dL (0.2-1.3); CALCIUM 8.4 mg/dL (8.5-10.1); CARBON DIOXIDE 26.2 mmol/L (21.0-32.0); CHLORIDE - SERUM 105 mmol/L (98-107); CREATININE - SERUM 0.9 mg/dL (0.6-1.3); POTASSIUM - SERUM 4.1 mmol/L (3.5-5.1); PROTEIN - SERUM 6.2 g/dL (6.4-8.2); SODIUM 138 mmol/L (136-145); eGFR NON AFRICAN AMERICAN > 90 mL/min (90-120)
[2019-10-10 06:11] LABS: ALT (SGPT) 62 U/L (10-68); CALC OSMOLALITY 273 mosm/kg (275-300); GLUCOSE 82 mg/dL (74-106); UREA NITROGEN 9 mg/dL (7-18)
--- NOTE | 2019-10-10 08:09 | MORECARE ---
CASE MANAGEMENT DISCHARGE SUMMARY PATIENT: FAISAL ROLON UNIT: [id number] ADM DATE: 10/07/19 AGE: 49 : [birth year] SEX: M ROOM/BED: D.2206 AUTHOR: MATILDA COLLINS PHYSICIAN: REFERRING PHYSICIAN: SWAPNA BRANHAM MD DATE OF SERVICE: 10/10/19 Discharge Plan Patient Name: FAISAL ROLON [facility] : 1970 Planned Disposition: Home or Self Care Anticipated Discharge Date: Discharge Date: Expected LOS: Initial Reviewer: [email or web address] Initial Review Date: 10/07/2019 Generated: 10/10/19 9:08 am Patient Name: FAISAL ROLON Page [phone] at 0809 All edits/amendments must be made on the electronic document DICTATION DATE: 10/10/19807 CUSTODIAL OFFICER: LUDY 10/10/19 RPT#: [id number] DC DATE: STATUS: ADM IN [facility] [address] [place] [address] END OF REPORT
--- NOTE | 2019-10-10 08:16 | MORECARE ---
CASE MANAGEMENT DISCHARGE SUMMARY PATIENT: FAISAL ROLON UNIT: [id number] ADM DATE: 10/07/19 AGE: 49 : [birth year] SEX: M ROOM/BED: D.2206 AUTHOR: DENNIS,DOC PHYSICIAN: REFERRING PHYSICIAN: SWAPNA BRANHAM MD DATE OF SERVICE: 10/10/19 Discharge Plan Patient Name: FAISAL ROLON Facility: [facility]:[place] : 1970 Planned Disposition: Home or Self Care Anticipated Discharge Date: Discharge Date: Expected LOS: Initial Reviewer: [email or web address] Initial Review Date: 10/07/2019 Generated: 10/10/19 9:16 am Comments DCP- Discharge Planning Updated by [email or web address]: Cherelle Esteban on 10/10/19 7:[address] Patient Name: FAISAL ROLON Admission Status: Elective Accout number: [id number] Admission Date: 10-07-2019 : 1970 Admission Diagnosis:ACUTE EMBOLISM AND THROMBOSIS OF DEEP VEINS OF R UP EXT Attending: SWAPNA BRANHAM Current LOS: 3 Anticipated DC Date: Planned Disposition: Home or Self Care Primary Insurance: [place] [employer] [facility] Discharge Planning Comments: CM met with patient to complete initial dc planning assessment. CM educated patient on the CM role and verbal consent given by patient to complete assessment. Patient lives at home with his spouse where he is independent with his care. At discharge patient plans to return home and feels this is a safe discharge. His will be his city driver home at dc. CM discussed availability of home health, rehab services, and medical equipment. Patient denied known discharge needs at this time. CM will continue to follow and will assist as needed with dc plans/needs. Label Maker: Cherelle Esteban DCPIA - Discharge Planning Initial Assessment Updated by [email or web address]: Cherelle Esteban on 10/10/19 8:09 am * Is the patient Alert and Oriented? Yes * How many steps to enter\exit or inside your home? * PCP [facility] * Pharmacy [facility] * Preadmission Environment Home with Family * ADLs Independent * Equipment None * List name and contact numbers for known caregivers / representatives who currently or will assist patient after discharge: MARIANA () [phone] * Verbal permission to speak to the caregivers and representatives has been obtained from the patient. N/A * Community resources currently utilized None * Additional services required to return to the preadmission environment? No * Can the patient safely return to the preadmission environment? Yes * Has this patient been hospitalized within the prior 30 days at any hospital? No Last DP export: 10/10/19 7:09 a Patient Name: FAISAL ROLON Page [phone] at 0816 All edits/amendments must be made on the electronic document DICTATION DATE: 10/10/19815 WELDER PRODUCTION LINE COMBINATION: LUDY 10/10/19815 RPT#: [id number] DC DATE: STATUS: ADM IN [facility] [address] [place] [address] END OF REPORT
[2019-10-10 08:56] VITALS: BP 122/71
--- NOTE | 2019-10-10 09:25 | NUR ---
PT RESTING QUIETLY IN BED. RESP EVEN AND UNLABORED. IV TO LEFT FOREARM WITH 1/2 NS @ 50ML/HR INFUSING VIA PUMP. SITE WITHOUT REDNESS OR EDEMA. DENEIS FURTHER NEEDS AT THIS TIME. CL WITHIN REACH. ENCOURAGED TO CALL WITH NEEDS. CONTINUE POC
[2019-10-10] MEDS ORDERED: ELIQUIS5 MG PO (10:11)
--- NOTE | 2019-10-10 12:04 | MORECARE ---
CASE MANAGEMENT DISCHARGE SUMMARY PATIENT: FAISAL ROLON UNIT: [id number] ADM DATE: 10/07/19 AGE: 49 : 68 SEX: M ROOM/BED: D.2206 AUTHOR: DENNIS,DOC PHYSICIAN: REFERRING PHYSICIAN: SWAPNA BRANHAM MD DATE OF SERVICE: 10/10/19 Discharge Plan Patient Name: FAISAL ROLON Facility: [facility]:[place] : 1970 Planned Disposition: Home or Self Care Anticipated Discharge Date: Discharge Date: Expected LOS: Initial Reviewer: [email or web address] Initial Review Date: 10/07/2019 Generated: 10/10/19 1:04 pm Comments DCP- Discharge Planning Updated by [email or web address]: Cherelle Esteban on 10/10/19 10:[address] SPOKE WITH KARRI AT THE [facility] AND HATTIE IS COVERED 100% DCP- Discharge Planning Updated by [email or web address]: Cherelle Esteban on 10/10/19 7:[address] Patient Name: FAISAL ROLON Admission Status: Elective Accout number: [id number] Admission Date: 10-07-2019 : 1970 Admission Diagnosis:ACUTE EMBOLISM AND THROMBOSIS OF DEEP VEINS OF R UP EXT Attending: SWAPNA BRANHAM Current LOS: 3 Anticipated DC Date: Planned Disposition: Home or Self Care Primary Insurance: [place] [employer] [place] Discharge Planning Comments: CM met with patient to complete initial dc planning assessment. CM educated patient on the CM role and verbal consent given by patient to complete assessment. Patient lives at home with his spouse where he is independent with his care. At discharge patient plans to return home and feels this is a safe discharge. 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 CM discussed availability of home health, rehab services, and medical equipment. Patient denied known discharge needs at this time. CM will continue to follow and will assist as needed with dc plans/needs. Book Cutter: Cherelle Esteban DCPIA - Discharge Planning Initial Assessment Updated by [email or web address]: Cherelle Esteban on 10/10/19 8:09 am * Is the patient Alert and Oriented? Yes * How many steps to enter\exit or inside your home? * PCP [facility] * Pharmacy [facility] * Preadmission Environment Home with Family * ADLs Independent * Equipment None * List name and contact numbers for known caregivers / representatives who currently or will assist patient after discharge: MARIANA () [phone] * Verbal permission to speak to the caregivers and representatives has been obtained from the patient. N/A * Community resources currently utilized None * Additional services required to return to the preadmission environment? No * Can the patient safely return to the preadmission environment? Yes * Has this patient been hospitalized within the prior 30 days at any hospital? No Last DP export: 10/10/19 7:16 a Patient Name: FAISAL ROLON Page [id number] at 1204 All edits/amendments must be made on the electronic document DICTATION DATE: 10/10/19 1204 WIRELESS SALES MANAGER: LUDY 10/10/19 1204 RPT#: [id number] DC DATE: STATUS: ADM IN [facility] [address] [place] [address] END OF REPORT
--- NOTE | 2019-10-10 14:58 | MORECARE ---
CASE MANAGEMENT DISCHARGE SUMMARY PATIENT: FAISAL ROLON UNIT: [id number] ADM DATE: 10/07/19 AGE: 49 : 68 SEX: M ROOM/BED: D.2206 AUTHOR: DENNIS,DOC PHYSICIAN: REFERRING PHYSICIAN: SWAPNA BRANHAM MD DATE OF SERVICE: 10/10/19 Discharge Plan Patient Name: FAISAL ROLON Facility: [facility]:[place] : 1970 Planned Disposition: Home or Self Care Anticipated Discharge Date: Discharge Date: 10/10/2019 Expected LOS: Initial Reviewer: [email or web address] Initial Review Date: 10/07/2019 Generated: 10/10/19 3:57 pm Comments DCP- Discharge Planning Updated by [email or web address]: Cehrelle Esteban on 10/10/19 10:[address] SPOKE WITH KARRI AT THE [facility] AND HATTIE IS COVERED 100% DCP- Discharge Planning Updated by [email or web address]: Cherelle Esteban on 10/10/19 7:[address] Patient Name: FAISAL ROLON Admission Status: Elective Accout number: [id number] Admission Date: 10-07-2019 : 1970 Admission Diagnosis:ACUTE EMBOLISM AND THROMBOSIS OF DEEP VEINS OF R UP EXT Attending: SWAPNA BRANHAM Current LOS: 3 Anticipated DC Date: Planned Disposition: Home or Self Care Primary Insurance: [place] [employer] [place] Discharge Planning Comments: CM met with patient to complete initial dc planning assessment. CM educated patient on the CM role and verbal consent given by patient to complete assessment. Patient lives at home with his spouse where he is independent with his care. At discharge patient plans to return home and feels this is a safe discharge. 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 CM discussed availability of home health, rehab services, and medical equipment. Patient denied known discharge needs at this time. CM will continue to follow and will assist as needed with dc plans/needs. Swimming Professor: Cherelle Esteban DCPIA - Discharge Planning Initial Assessment Updated by [email or web address]: Cherelle Esteban on 10/10/19 8:09 am * Is the patient Alert and Oriented? Yes * How many steps to enter\exit or inside your home? * PCP [facility] * [facility]acy [facility] * Preadmission Environment Home with Family * ADLs Independent * Equipment None * List name and contact numbers for known caregivers / representatives who currently or will assist patient after discharge: MARIANA () [phone] * Verbal permission to speak to the caregivers and representatives has been obtained from the patient. N/A * Community resources currently utilized None * Additional services required to return to the preadmission environment? No * Can the patient safely return to the preadmission environment? Yes * Has this patient been hospitalized within the prior 30 days at any hospital? No Last DP export: 10/10/19 11:04 a Patient Name: FAISAL ROLON Page [id number] at 1458 All edits/amendments must be made on the electronic document DICTATION DATE: 10/10/191456 PRECISION LENS GRINDER APPRENTICE: LUDY 10/10/197 RPT#: [id number] DC DATE:10/10/19 STATUS: DIS IN [facility] [address] [place] [address] END OF REPORT
== END 2019-10-10 13:33 | disposition home or self-care (01) | DRG 315 ==
LOC: D.MS 19:45
PROVIDERS: Family Medicine; ADMIT Orthopaedic Surgery; ATTEND Orthopaedic Surgery
DX: T82.818A Embolism due to vascular prosthetic devices, implants and grafts, initial encounter (principal); I82.621 Acute embolism and thrombosis of deep veins of right upper extremity; I82.90 Acute embolism and thrombosis of unspecified vein; I82.B11 Acute embolism and thrombosis of right subclavian vein; I69.351 Hemiplegia and hemiparesis following cerebral infarction affecting right dominant side; D75.1 Secondary polycythemia; I10 Essential (primary) hypertension; K21.9 Gastro-esophageal reflux disease without esophagitis; F41.9 Anxiety disorder, unspecified; G47.00 Insomnia, unspecified

== ENCOUNTER → 2020-02-23 14:57 | Outpatient (CLI) | payer MEDICAID ==
[2019-10-08 09:02] VITALS: BMI 27.6
[~2020-02-23 14:57] MED LIST changes: +ELIQUIS5 MG PO
== END | disposition home or self-care (01) ==
LOC: D.MRI 14:57
PROVIDERS: ATTEND Orthopaedic Surgery
DX: M17.11 Unilateral primary osteoarthritis, right knee (principal)

== ENCOUNTER → 2020-08-04 20:51 | Outpatient (CLI) | payer MEDICAID ==
[2020-04-06 13:35] VITALS: BMI 27.2
[~2020-08-04 20:51] MED LIST changes: +AMBIEN10 MG PO; +NORVASC10 MG PO; +TESSALON PERLE100 MG PO; +ZOFRAN ODT4 MG/UDTAB PO
[2020-08-04 21:24] LABS: BASOPHILS 0.3 % (0-2); EOSINOPHILS 1.3 % (0-7); HEMATOCRIT 43.6 % (42.0-54.0); HEMOGLOBIN 14.4 g/dL (13.5-17.5); IMMATURE GRANULOCYTES 0.5 % (0-5); LYMPHOCYTE ABS# 1.16 10x3/uL (1.32-3.57); LYMPHOCYTES 19.3 % (15-50); MCV 99.8 fL (80.0-100.0); MEAN PLATELET VOLUME 11.2 fL (7.4-10.4); MONOCYTES 16.2 % (2-11); NEUTROPHIL ABS# 3.74 10x3/uL (1.78-5.38); NEUTROPHILS 62.4 % (40-80); PLATELET COUNT 202 10x3/uL (130-400); RBC 4.37 10x6/uL (4.20-6.10); RDW 13.2 % (11.5-14.5)
[2020-08-04 22:25] LABS: ERYTHROCYTE SEDIMENTATION RATE 16 mm/hr (0-20)
== END | disposition home or self-care (01) ==
LOC: D.LABREF 20:51
PROVIDERS: ATTEND Clinical Nurse Specialist Family Health
DX: M25.561 Pain in right knee (principal)

== ENCOUNTER → 2020-10-07 10:34 | Outpatient (CLI) | payer BC ==
[2020-04-06 13:35] VITALS: BMI 27.2
== END | disposition home or self-care (01) ==
LOC: D.MRI 10:30
PROVIDERS: ATTEND Clinical Nurse Specialist Family Health
DX: M25.511 Pain in right shoulder (principal)

== ENCOUNTER 2020-10-09 16:53 | Emergency (ER) | payer BC ==
[~2020-10-09] VITALS: Ht 188 cm; Wt 113.6 kg
[2020-10-09 17:02] VITALS: Ht 188 cm; Wt 113.6 kg
[2020-10-09 17:11] LABS: BASOPHILS 0.2 % (0-2); EOSINOPHILS 1.2 % (0-7); HEMATOCRIT 39.8 % (42.0-54.0); HEMOGLOBIN 13.4 g/dL (13.5-17.5); IMMATURE GRANULOCYTES 0.4 % (0-5); LYMPHOCYTE ABS# 1.66 10x3/uL (1.32-3.57); MCH 31.4 pg (26.0-34.0); MCHC 33.7 g/dL (31.0-37.0); MCV 93.2 fL (80.0-100.0); MEAN PLATELET VOLUME 10.9 fL (7.4-10.4); MONOCYTES 11.1 % (2-11); NEUTROPHIL ABS# 8.67 10x3/uL (1.78-5.38); NEUTROPHILS 73.1 % (40-80); PLATELET COUNT 187 10x3/uL (130-400); RBC 4.27 10x6/uL (4.20-6.10); RDW 12.7 % (11.5-14.5); WBC 11.9 10x3/uL (4.8-10.8)
[2020-10-09 17:25] LABS: APTT 28.8 SECONDS (22.8-39.4); INR 1.26 (0.85-1.17); PROTIME 14.6 SECONDS (11.6-15.0)
[2020-10-09 17:32] LABS: CALC OSMOLALITY 278 mosm/kg (275-300); CALCIUM 8.3 mg/dL (8.5-10.1); CARBON DIOXIDE 23.7 mmol/L (21.0-32.0); CHLORIDE - SERUM 106 mmol/L (98-107); CREATININE - SERUM 1.5 mg/dL (0.6-1.3); GLUCOSE 86 mg/dL (74-106); POTASSIUM - SERUM 4.1 mmol/L (3.5-5.1); SODIUM 141 mmol/L (136-145); UREA NITROGEN 11 mg/dL (7-18); eGFR NON AFRICAN AMERICAN 52 mL/min (90-120)
[2020-10-09 17:49] LABS: ALBUMIN 3.6 g/dL (3.4-5.0); ALKALINE PHOSPHATASE 136 U/L (30-120); ALT (SGPT) 21 U/L (10-68); BILIRUBIN - TOTAL 0.38 mg/dL (0.2-1.3); CKMB 2.5 U/L (0.0-3.6); CREATINE KINASE 252 UL (21-232); MAGNESIUM - SERUM 2.1 mg/dL (1.8-2.4); PROTEIN - SERUM 6.8 g/dL (6.4-8.2); THYROID STIMULATING HORMONE 2.23 uIU/mL (0.36-3.74); TROPONIN-I < 0.017 ng/mL (0.000-0.060)
[2020-10-09 21:21] VITALS: BP 112/73
== END 2020-10-09 21:22 | disposition other institution (70) ==
LOC: D.ER 16:53
PROVIDERS: Family Medicine
DX: R29.810 Facial weakness (principal); R47.1 Dysarthria and anarthria; Z79.01 Long term (current) use of anticoagulants; Z86.73 Personal history of transient ischemic attack (TIA), and cerebral infarction without residual deficits; I10 Essential (primary) hypertension; K21.9 Gastro-esophageal reflux disease without esophagitis